=== PATIENT | male | born 1940 | race African-American/Black ===

== ENCOUNTER 2017-03-23 07:44 | Outpatient (CLI) | payer MEDICARE, OTHER | END 2017-03-23 07:45 | disposition home or self-care (01) | LOC: BICMRI 07:44 | PROVIDERS: ATTEND Family Medicine | DX: M54.5 Low back pain (principal); M54.2 Cervicalgia; M48.061 Spinal stenosis, lumbar region without neurogenic claudication; M48.02 Spinal stenosis, cervical region; M25.78 Osteophyte, vertebrae; M48.07 Spinal stenosis, lumbosacral region; M99.73 Connective tissue and disc stenosis of intervertebral foramina of lumbar region; M99.51 Intervertebral disc stenosis of neural canal of cervical region | CPT/HCPCS: 72141; 72148 ==

== ENCOUNTER 2017-05-17 09:35 | Outpatient (CLI) | payer MEDICARE, OTHER ==
--- NOTE | 2017-05-17 11:42 | RAD ---
FOUR VIEWS OF THE LUMBOSACRAL SPINE: HISTORY: Low back pain radiating down the back of the legs for 20 years. COMPARISON: None. FINDINGS: AP, lateral, flexion, and extension views of the lumbosacral spine were performed. There is grade 1 anterolisthesis of L4 on L5. This alignment is unchanged with flexion and extension. The interverte bral disks are narrowed from L2-L3 through L3-L4, and moderate osteophytes are seen throughout the edy mbar spine. Posterior facet arthrosis is seen in the lower lumbosacral spine. IMPRESSION: Moderate degenerative changes of the lumbar spine with anterolisthesis of L4 on L5. Alignment is unc hanged with flexion/extension. POS: [facility]
--- NOTE | 2017-05-17 11:55 | RAD ---
CERVICAL SPINE FIVE VIEWS: INDICATIONS: History of neck pain. Tingling in both hands, but more on the left. FINDINGS: There is multilevel moderate to severe disk degenerative and facet osteoarthritic change. There is s light anterior translation of C3 on C4 that is accentuated with the flexion and is not completely red uced with extension. There is advanced disk degenerative disease, most pronounced at C4-C5 through C 6-C7. Prevertebral soft tissues are within normal limits. The cervicothoracic junction on the AP vi ew only is within normal limits. The lung apices are clear. The lateral masses are symmetric. Mild vascular calcifications are seen involving the aortic arch. IMPRESSION: 1. Moderate to severe spondylosis of the cervical spine. 2. Mild anterior translation of C3 on C4 that is accentuated with flexion and does not completely re duce with extension. POS: [facility]
--- NOTE | 2017-05-17 13:18 | MRI ---
MRI THORACIC SPINE WITHOUT CONTRAST: Technique: Multiplanar, multisequential imaging of the thoracic spine obtained. History: Spinal stenosis of the thoracic spine. FINDINGS: The thoracic vertebrae maintain height and alignment. There are moderate degenerative changes noted. There are anterior osteophytes. There is loss of disc space seen at all levels of the thoracic spine. Degenerative endplate signal changes are prominent at T7-8, T8-9, and T9-10 levels. Diffuse disc bul ge at T1 and T2 impinges on the anterior cord. Evidence of right foraminal encroachment at this level . Broad based disc bulge at T5 and T6 efface the anterior subarachnoid space within significant cord im pingement. Broad based disc bulge is seen at multiple other levels including T6-7, T7-8, T8-9. There is effaceme nt of the anterior subarachnoid space at all of these levels. At T9-10 there is diffuse disc bulge efface the anterior subarachnoid space and abuts the cord. Prominent disc bulge at T10-11 abuts the anterior conus as does diffuse disc bulge at T11-12. The thoracic cord is normal. IMPRESSION: 1. Mild central canal stenosis at T1-2 due to broad based disc bulge impinging and indenting the ante rior cord. 2. Diffuse disc bulge seen at multiple other levels of the thoracic spine as described above. These bulges efface the anterior subarachnoid space at multiple levels and these changes abutt the anterior cord at several levels as noted above producing mild to moderate central canal stenosis at T10-11 an d T11-12. POS: [facility]
--- NOTE | 2017-05-17 14:27 | CT ---
CT CERVICAL SPINE NONCONTRAST: Date: 05/17/17 HISTORY: 76-year-old male with cervical spondylosis, cervical myelopathy, cervicalgia, and bilateral cervical radiculopathy. COMPARISON: None. FINDINGS: There is reversal of curvature, with apex of the kyphosis at C4-5. C1-2: Essentially normal bilateral atlanto-occipital joints. Mild DJD of left atlantoaxial joint. Essential ly normal right atlantoaxial joint. Mild to moderate degenerative changes at atlanto-odontoid junctio n. No significant central spinal canal stenosis. C2-3: Disc space maintained. Small central disc protrusion causes moderate central spinal canal stenosis. M oderate bilateral degenerative facet changes. Bilateral mild to moderate neural foraminal stenosis. C3-4: Moderate disc space narrowing. Severe right degenerative facet changes and moderate to severe left de generative facet changes result in a mild Grade I anterolisthesis of C2 and C4. This spondylolisthesi s, together with broad based shallow disc-osteophyte complex, results in severe central spinal canal stenosis, indenting the ventral surface of the spinal cord. Thickened ligamentum flavum indents the d orsal surface of the spinal cord. Bilateral moderate size uncinate process osteophytes and facet hype rtrophy result in severe bilateral neural foraminal stenosis. C4-5: Severe disc space narrowing. Broad based disc-osteophytic bar complex indents the ventral surface of the spinal cord. Severe central spinal canal stenosis. Large bilateral uncinate process osteophytes. Mild to moderate right neural foraminal stenosis. Moderate to severe left neural foraminal stenosis. Mild to moderate bilateral degenerative facet changes. C5-6: Severe disc space narrowing with vacuum disc phenomenon. Broad based disc-osteophytic bar complex, as ymmetrically larger on the right than left, indents the right side of the spinal cord, causing severe central spinal canal stenosis. Large bilateral uncinate process osteophytes. Extremely severe right neural foraminal stenosis. Moderate left neural foraminal stenosis. Mild to moderate right degenerati ve facet changes. Mild left degenerative facet changes. C6-7: Severe disc space narrowing. Broad based disc-osteophyte bar complex indents the ventral aspect of th e spinal cord. Thickened ligamentum flavum indents the dorsal aspect of the spinal cord. Severe centr al spinal canal stenosis. Moderate to large bilateral uncinate process osteophytes. Mild to moderate right neural foraminal stenosis. Moderate to severe left neural foraminal stenosis. Large air-filled subchondral cysts on the left side of the vertebral bodies of C7 and C6. C7-T1: Moderate to severe bilateral degenerative facet changes result in Grade I anterolisthesis of C7 on T1 . Moderate disc space narrowing. Mild to moderate central spinal canal stenosis. Moderate to severe b ilateral neural foraminal stenosis. IMPRESSION: Severe cervical spondylosis, with multilevel severe degenerative disc disease, severe facet osteoarth rosis, severe central spinal canal stenosis, and severe neural foraminal stenosis. SHANNAN Bourgeois POS: [facility]
== END 2017-05-17 09:36 | disposition home or self-care (01) ==
LOC: MRI 09:35 → TBSIIMAG 09:36
PROVIDERS: ATTEND Surgery
DX: M47.12 Other spondylosis with myelopathy, cervical region (principal); M48.04 Spinal stenosis, thoracic region; M54.16 Radiculopathy, lumbar region; M50.00 Cervical disc disorder with myelopathy, unspecified cervical region; M47.16 Other spondylosis with myelopathy, lumbar region; M43.16 Spondylolisthesis, lumbar region
CPT/HCPCS: 72050; 72110; 72125; 72146

== ENCOUNTER 2017-08-24 14:53 | Outpatient (CLI) | payer MEDICARE, OTHER | END 2017-08-24 14:54 | disposition home or self-care (01) | LOC: BICMRI 14:53 | PROVIDERS: ATTEND Family Medicine | DX: F03.90 Unspecified dementia, unspecified severity, without behavioral disturbance, psychotic disturbance, mood disturbance, and anxiety (principal); I67.82 Cerebral ischemia; G31.9 Degenerative disease of nervous system, unspecified | CPT/HCPCS: 70551 ==

== ENCOUNTER 2018-04-05 13:23 | Outpatient (CLI) | payer MEDICARE, OTHER ==
[2018-04-05] MEDS ORDERED: Gadobenate Dimeglumine 529 MG/1 ML (20ML VIAL) ONE (13:26)
--- NOTE | 2018-04-05 15:58 | MRI ---
MRI BRAIN WITH AND WITHOUT CONTRAST: Date: 04/05/18 HISTORY: 77-year-old male with G31.1 senile degeneration of brain, not elsewhere classified. TECHNIQUE: Multiple sequences obtained in axial, sagittal, and coronal planes, pre and post IV injection of gado linium-based contrast agent: 20 mL MultiHance. FINDINGS: The ventricles are normal in size and configuration. There is no restricted diffusion, abnormal intr aaxial enhancement, mass, midline shift or any other mass effect, recent intraaxial hemorrhage, or ex traaxial fluid collection. There are extensive, confluent T2-hyperintensities throughout the cerebral white matter consistent with severe chronic ischemic white matter changes due to microvascular ather osclerosis. There is diffuse brain parenchymal volume loss. IMPRESSION: 1. Severe chronic ischemic white matter changes. 2. Otherwise negative. jn[] POS: [facility]
== END 2018-04-05 13:24 | disposition home or self-care (01) ==
LOC: BICMRI 13:23
PROVIDERS: ATTEND Psychiatry & Neurology Neurology
DX: G31.1 Senile degeneration of brain, not elsewhere classified (principal)
CPT/HCPCS: 70553; 82565; A9579

== ENCOUNTER 2019-04-24 10:54 | Inpatient (IN) | payer MEDICARE, OTHER ==
[2019-04-24 11:30] LABS: Hemoglobin 12.6 g/dL (14.0-18.0); Mean Corpuscular HGB CONC 31.1 g/dL (32.0-36.0); Mean Corpuscular Hemoglobin 22.9 pg (27.0-31.0); Mean Corpuscular Volume 73.7 fL (78.0-98.0); Mean Platelet Volume 9.3 fL (7.4-10.4); Platelet Count 184 thou/uL (130-400); RBC Distribution Width 14.2 % (11.5-14.5); White Blood Cell (WBC) Count 5.5 thou/uL (4.8-10.8)
[2019-04-24 11:31] LABS: #Basophils 0.1 thou/uL (0.0-0.2); #Lymphocytes 1.3 thou/uL (1.20-3.40); #Monocytes 0.5 thou/uL (0.11-0.59); #Neutrophils 3.7 thou/uL (1.40-6.50); %Basophils 1.8 % (0.0-1.0); %Eosinophils 0.5 % (0.0-10.0); %Lymphocytes 22.7 % (21.0-51.0); %Monocytes 8.4 % (0.0-10.0); %Neutrophils 66.5 % (42.0-75.0)
--- NOTE | 2019-04-24 11:50 | CT ---
CT HEAD WITHOUT IV CONTRAST COMPARISON: MRI brain 04/05/2018 HISTORY: Altered mental status. TECHNIQUE: Axial CT imaging at 5 mm intervals from vertex through skull base without contrast FINDINGS: There is decreased attenuation in the periventricular white matter which is nonspecific but likely re flective of severe chronic small vessel ischemic changes and similar to MRI brain given differences in imaging modality. There is mild cerebral volume loss. The ventricular system is normal in size, shape, and position for the degree of sulcal atrophy. There is no evidence of an acute cortical infarction, hemorrhage, mass effect, or midline shift. Mucosal thickening is present in the left maxillary antrum. Mastoid air cells are clear. Osseous structures appear intact. IMPRESSION: 1. No acute intracranial abnormality demonstrated. 2. Chronic small vessel ischemic changes and cerebral volume loss.
[2019-04-24 11:52] LABS: Hypochromia SLIGHT = 6-15 cells (100X) (0-5/hpf); MDiff Complete? YES; Microcytosis SLIGHT = 6-15 cells (100X) (0-5/hpf); Platelet Morphology Comment Appears Adequate; Polychromasia SLIGHT = 2-3 cells (100X) (0-2/hpf)
[2019-04-24 11:58] LABS: ALT (SGPT) 9 U/L (8-55); AST (SGOT) 17 U/L (5-34); Albumin 3.9 g/dL (3.4-4.8); Alkaline Phosphatase 62 U/L (40-110); Anion Gap 16 mmol/L (10-20); BUN (Urea Nitrogen) 18 mg/dL (8.4-25.7); Bilirubin, Total 0.5 mg/dL (0.2-1.2); Calc. Creatinine Clearance 0 mL/min (70-130); Calcium 9.4 mg/dL (7.8-10.44); Carbon Dioxide 22 mmol/L (23-31); Chloride 104 mmol/L (98-107); Estimated GFR-MDRD 47; Globulin 2.7 g/dL (2.4-3.5); Glucose 177 mg/dL (83-110); Potassium 4.4 mmol/L (3.5-5.1); Protein, Total 6.6 g/dL (5.8-8.1); Sodium 138 mmol/L (136-145)
--- NOTE | 2019-04-24 13:23 | RAD ---
PORTABLE CHEST: Date: 04/24/2019 HISTORY: Mental status change. FINDINGS: Heart is mildly enlarged. Mild vascular engorgement without overt congestive change. No focal infiltr ate. Osseous structures appear intact. IMPRESSION: Cardiomegaly and mild vascular engorgement. No evidence of acute process. POS: [facility]
--- NOTE | 2019-04-24 13:50 | PDOC.FPRHP ---
- History of Present Illness Chief Complaint: Found Down History of Present Illness: Patient is an 78 y/o male with a PMH significant for worsening Dementia, HTN, LBP, HLD and questionable DM2 who presents to the ED via ambulance. The patient was A&Ox1 during the evaluation, so much of the patient' s HPI had to be obtained from his yk-ltszvkuh-to-law, neighbor, and grandson, whom he now lives with. Per the patient's family and friends present during the evaluation, the patient had been having worsening episodes of confusion over the past several months where he would become lost within the [facility] area. On 04/23, he again became confused and drove to [place], [place]. Upon realizing that he was lost, he subsequently phoned his family, who picked him up and brought him home at around 11:00 PM, which was the last time that he was seen normal. At approximately 11:00 AM on 04/24/2019, his grandson returned home from work and found him down on the floor in his bedroom. There was no sign of trauma, acute injury or blood loss, toxic exposure, or loss of bowel or bladder function. However, the patient's grandson states that he was unable to fully arouse him, and that his mental status seemed altered from baseline. He subsequently phoned EMS, which prompted his presentation to [facility]. Per the family and friends present during the evaluation, the patient does not have a history of falls, recent illness or substance abuse. ED Course: While in the ED, the patient was found to be mildy hypoxic and hypotensive, with an O2Sat of 92% (Room Air) and a BP of 83/46. As such, he was subsequently place on 2L via Nasal Cannula and received a 1 L bolus of NS. EKG: RBBB (Baseline Unknown) CPK: 282 (Mildly Elevated) Cr: 1.71 (Elevated - Baseline Unknown) Glucose: 177 H.6 / Hct: 40.5 Trop: 0.015 UA: WNL CT Head: NAF, Chronic Small Vessel Changes and Cerebral Volume Loss CXR: Cardiomegaly with Vascular Engorgement. NAF The resident team [facility] [place] [place] but was unable to obtain records or speak with a healthcare provider. - Home Medications Comments: Patient's grandson left the ED to get an updated Med List. - History PMHx: Dementia, HTN, HLD, LBP, questionable DM2 PSHx: None FHx: No Hx of Seizures, Heart Disease Social: Remote Tobacco Abuse while Patient was "in the [employer]". Currently denies x3 Difficult to obtain based on patient's AMS* - Review of Systems ROS unobtainable: due to mental status - Vital signs BP: [110/54] HR: [56] RR: [18] Tmax: [97.7] Pox: [92]% on [2L Nasal Cannula] Wt: [136 kg] - Physical Exam Constitutional: NAD, well developed, other (A&Ox1, mild tremulouslness noted in upper extremities) HEENT: normocephalic and atraumatic, grossly normal hearing, normal nasal mucosa , MMM, oropharynx clear, other (Patient would not open eyes for physical exam - stated he could see fine and "that's how they always are") Neck: supple, FROM, trachea midline, no LAD, no JVD, no bruits Chest: no-tender to palpation, no lesions Heart: RRR, normal S1/S2, no murmurs/rubs/gallops, pulses present -Heart: Trace pitting edema in LEs. Lungs: CTAB, no respiratory distress, good air movement, no rales/rhonchi, no wheezing, no retractions Abdomen: soft, non-tender, bowel sounds present, no masses/distention, no hernias Musculoskeletal: normal structure, ROM grossly normal Neurological: other ((+) Finger to Nose, (-) Rhomberg) Skin: no rash/lesions, no jaundice Heme/Lymphatic: no unusual bruising or bleeding, no purpura, no petechia, no LAD Psychiatric: other (See HPI - A&Ox1) FMR H&P: Results - Labs Result Diagrams: 04/24/19 11:18 04/24/19 11:18 Lab results: WBC 5.5 thou/uL (4.8-10.8) 04/24/19 11:18 Hgb 12.6 g/dL (14.0-18.0) L 04/24/19 11:18 Hct 40.5 % (42.0-52.0) L 04/24/19 11:18 MCV 73.7 fL (78.0-98.0) L 04/24/19 11:18 Plt Count 184 thou/uL (130-400) 04/24/19 11:18 Neutrophils % 66.5 % (42.0-75.0) 04/24/19 11:18 Sodium 138 mmol/L (136-145) 04/24/19 11:18 Potassium 4.4 mmol/L (3.5-5.1) 04/24/19 11:18 Chloride 104 mmol/L (98-107) 04/24/19 11:18 Carbon Dioxide 22 mmol/L (23-31) L 04/24/19 11:18 BUN 18 mg/dL (8.4-25.7) 04/24/19 11:18 Creatinine 1.71 mg/dL (0.7-1.3) H 04/24/19 11:18 Glucose 177 mg/dL (83-110) H 04/24/19 11:18 Calcium 9.4 mg/dL (7.8-10.44) 04/24/19 11:18 Total Bilirubin 0.5 mg/dL (0.2-1.2) 04/24/19 11:18 AST 17 U/L (5-34) 04/24/19 11:18 ALT 9 U/L (8-55) 04/24/19 11:18 Alkaline Phosphatase 62 U/L (40-110) 04/24/19 11:18 Creatine Kinase 282 U/L (30-200) H 04/24/19 11:18 Serum Total Protein 6.6 g/dL (5.8-8.1) 04/24/19 11:18 Albumin 3.9 g/dL (3.4-4.8) 04/24/19 11:18 - EKG Interpretation EKG: RBBB, EKG reviewed by Residents - Radiology Interpretation Chest x-ray Status: report reviewed by me (Cardiomegal and Vascular Congestion, otherwise WNL.) FMR H&P: A/P - Problem List (1) Altered mental status Current Visit: Yes Status: Acute Code(s): R41.82 - ALTERED MENTAL STATUS, UNSPECIFIED (2) Dementia Current Visit: Yes Status: Acute Code(s): F03.90 - UNSPECIFIED DEMENTIA WITHOUT BEHAVIORAL DISTURBANCE (3) HTN (hypertension) Current Visit: Yes Status: Acute Code(s): I10 - ESSENTIAL (PRIMARY) HYPERTENSION (4) HLD (hyperlipidemia) Current Visit: Yes Status: Acute Code(s): E78.5 - HYPERLIPIDEMIA, UNSPECIFIED (5) Diabetes mellitus Current Visit: Yes Status: Acute Code(s): E11.9 - TYPE 2 DIABETES MELLITUS WITHOUT COMPLICATIONS - Plan Patient is an 78 y/o male who presents to the ED via EMS with an AMS after being found down. 1. AMS -Possibly down for 12H based on family's report w/o of trauma or substance abuse - seizure activity appears unlikely -CVA vs. TIA appear most likely etiology at this time based on presentation and comorbidities -A&O x1 (Person) -Physical Exam: WNL -EKG: RBBB -Trops: Negative x1 -UA: WNL -TSH: Pending -CT Head: NAF -MRI: Pending -CTA Head/Neck: Pending -TTE: Pending -Neuro Consult: Pending 2. LYNDSEY -Current baseline unknown -Cr: 1.71 on 04/24/2019 -s/p 1L NS in ED -Will put on IVF - NS @ 75 ml/hr 3. Dementia -Recently worsening, per patient's family - no known medication regimen -Likely contributing factor to #1 and #2 -Consider sitter, soft restraints, or pharmacologic restraints if patient becomes altered 4. HTN -Hypotensive in ED - currently WNL after 1L NS bolus -Will monitor for 24H and allow for Permissive HTN -Treat with Hydralazine 10 mg PO if BP > 220/120 mmHg 5. HLD -Current medication regimen unknown -Fasting Lipid Panel: Pending 6. DM -Questionable history - will request records from [facility] in [place], [place] -B on 04/24/2019 -Mild SSI -Bedtime SSI -Accuchecks Q4H PCP: [facility] ([place], [place]) Code: DNAR Diet: CC IVF: NS @ 75 ml/hr Activity: Strict Bedrest DVT PPx: Will Hold Dispo: Patient is currently admitted to the Stroke Floor for additional work-up after being found down with AMS. Await results of labs and imaging as per above. Expected LOS < 48H. FMR H&P: Upper Level - Plan Date/Time: 04/24/19 1350 I, [], have evaluated this patient and agree with findings/plan as outlined by internal medicine nurse resident. Pertinent changes/additions are listed here. Addendum - Attending - Attending Attestation Date/Time: 04/24/192234 I personally evaluated the patient and discussed the management with Dr. Howard. I agree with the History, Examination, Assessment and Plan documented above with any addition or exceptions noted below. Most of the history obtained from grandson. Patient has been without his primary warp dyeing vat tender (brother) for a week and so history from the last month is limited. His exam in consistent with dementia. He has a prominent JOHNATHON. Otherwise nonfocal exam. Workup as above.
[2019-04-24] MEDS ORDERED: Iopamidol-370 76% 500 ML 1 ML ONE (14:02)
[2019-04-24 15:02] LABS: Bilirubin Negative (Negative); Blood, Urine Negative (Negative); Clarity Clear (Clear); Glucose, Urine (Dipstick) Normal (Negative); Leukocyte Negative Leu/uL (Negative); Nitrite Negative (Negative); Protein, Urine (Dipstick) 10 mg/dL (Neg-Trace); Urobilinogen Normal mg/dL (Less than 2)
[2019-04-24 17:05] LABS: Troponin I 0.012 ng/mL (< 0.028)
--- NOTE | 2019-04-24 18:28 | PDOC.EVN ---
Event Note - Event Note Event Note: The patient's MPOA (Brother) was contacted on 04/24/2019 at 1825 in order to discuss the patient's Code Status. The patient's MPOA stated that they had never formally discussed his Code Status in the past, but that he knew from [facility] that he didn't want aggressive measures to be pursued if the patient were to decompensate rapidly. In order to ensure mutual understanding, the patient's MPOA was specifically asked if the patient would want chest compressions, intubation, cardioversion, or any type of pharmacologic intervention in the event of a code, to which the patient's MPOA responded refused - indicating that he was electing to change the patient's Code Status to DNAR.
[2019-04-24 19:53] LABS: Troponin I Less than 0.010 ng/mL (< 0.028)
[2019-04-24] MEDS ORDERED: Atorvastatin Calcium 40 MG TAB PO SCH ×2 (21:00→22:15)
[2019-04-24] MEDS ORDERED: Ondansetron ODT 4 MG TAB SL PRN (21:37)
[2019-04-24] MEDS ORDERED: Acetaminophen 325 MG TAB PO PRN ×2 (21:37→22:09)
[2019-04-24] MEDS ORDERED: Ondansetron PF 4 MG/2 ML Vial IVP PRN (21:37)
[2019-04-24] MEDS ORDERED: HYDROcodone/Acetaminophen 5/325 mg Tablet PO PRN ×2 (21:37)
[2019-04-24] MEDS ORDERED: Sodium Chloride 0.9% 1,000 ML IV SCH ×2 (21:37→22:09)
[2019-04-24] MEDS ORDERED: hydrALAZINE 20 MG/ML VIAL SLOW IVP PRN (22:09)
[2019-04-24] MEDS ORDERED: Famotidine 20 MG TAB PO SCH (22:15)
--- NOTE | 2019-04-24 22:26 | CT ---
CT ANGIO OF HEAD PERFORMED WITH AND WITHOUT CONTRAST ENHANCEMENT AND CT ANGIO OF NECK PERFORMED WITH INTRAVENOUS CONTRAST ENHANCEMENT. 3D RECONSTRUCTIONS ALSO PERFORMED. 04/24/19 HISTORY: Altered mental status, stroke symptoms. The lung apices show some evidence for air trapping. Thyroid gland is normal in size. Vocal cord sonny on appears unremarkable. No significant jugular chain adenopathy. Parapharyngeal spaces are clear. Mu cosal change is noted within the left maxillary sinus. 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 The vertebral arteries appear codominant. Artifact related to shoulders degrades the detail. On the right side, the right common carotid artery is tortuous but shows no significant stenosis. Some moderate calcified plaque at the origin of the i nternal carotid artery but no evidence of significant stenosis by NASCET criteria. The external carot id artery is also patent. No significant areas of narrowing noted. The left common carotid artery is also tortuous without significant stenosis. There is some moderate calcified plaque formation at the origin of the left internal carotid artery but no significant steno sis by NASCET criteria. The external carotid artery appears unremarkable. CT ANGIO OF HEAD PERFORMED WITH AND WITHOUT CONTRAST ENHANEMENT: The anterior and middle cerebral arteries and their branches appear unremarkable. The basilar artery is normal in caliber. Posterior cerebral arteries are normal. IMPRESSION: 1. No significant stenosis of either internal carotid artery. 2. Severe chronic white matter changes. No signs of any intracranial abnormalities. POS: [facility]
[2019-04-24] MEDS ORDERED: Calcium Carbonate 500 MG ChewTAB PO PRN (22:58)
[2019-04-25 00:35] VITALS: BMI 41.0
[2019-04-25 04:52] LABS: #Basophils 0.1 thou/uL (0.0-0.2); #Eosinphils 0.1 thou/uL (0.0-0.7); #Lymphocytes 1.5 thou/uL (1.20-3.40); #Monocytes 0.8 thou/uL (0.11-0.59); #Neutrophils 6.1 thou/uL (1.40-6.50); %Basophils 1.2 % (0.0-1.0); %Eosinophils 1.1 % (0.0-10.0); %Lymphocytes 17.4 % (21.0-51.0); %Monocytes 9.5 % (0.0-10.0); %Neutrophils 70.8 % (42.0-75.0); Hemoglobin 12.7 g/dL (14.0-18.0); Mean Corpuscular HGB CONC 29.6 g/dL (32.0-36.0); Mean Corpuscular Hemoglobin 22.1 pg (27.0-31.0); Mean Corpuscular Volume 74.9 fL (78.0-98.0); Mean Platelet Volume 10.1 fL (7.4-10.4); Platelet Count 184 thou/uL (130-400); RBC Distribution Width 14.6 % (11.5-14.5); Red Blood Cell (RBC) Count 5.72 mill/uL (4.70-6.10); White Blood Cell (WBC) Count 8.6 thou/uL (4.8-10.8)
[2019-04-25 05:28] LABS: Anion Gap 14 mmol/L (10-20); BUN (Urea Nitrogen) 22 mg/dL (8.4-25.7); Calc. Creatinine Clearance 68 mL/min (70-130); Calcium 9.3 mg/dL (7.8-10.44); Carbon Dioxide 21 mmol/L (23-31); Cardiac Risk 2.4 (Less than 4.5); Chloride 109 mmol/L (98-107); Cholesterol 131 mg/dl (< 200 Desired); Estimated GFR-MDRD 60; Glucose 115 mg/dL (83-110); HDL Cholesterol 55 mg/dL (>60 Neg Risk); LDL Cholesterol, Calculated 62 mg/dL; Potassium 4.9 mmol/L (3.5-5.1); Sodium 139 mmol/L (136-145); Triglycerides 69 mg/dL (Less than 150)
--- NOTE | 2019-04-25 06:27 | PDOC.FM ---
- Subjective Subjective: Patient was laying in bed at the time of evaluation with multiple friends and family present. He continued to remain A&Ox1, but did not appear to be agitated. His current plan of care was discussed with his dr-bwaulpjj-er-law, who was amenable to the Resident Team's input. - Objective Vital Signs & Weight: Vital Signs (12 hours) Temp Pulse Resp BP Pulse Ox 04/25/19 04:00 98.8 F 90 20 141/65 H 89 L 04/25/19 02:50 90 L 04/25/19 00:00 98.6 F 82 18 140/74 90 L Weight Weight 111.901 kg Result Diagrams: 04/25/19 07:36 04/25/19 07:36 Phys Exam - Physical Examination Constitutional: NAD HEENT: oral pharynx no lesions Neck: supple, full ROM Respiratory: no wheezing, no rhonchi Mild crackles Cardiovascular: RRR, no significant murmur, no rub Gastrointestinal: soft, non-tender, no distention Musculoskeletal: no edema, pulses present Neurological: non-focal, moves all 4 limbs Deviation from normal: A&Ox1 Skin: no rash Dx/Plan (1) Altered mental status Code(s): R41.82 - ALTERED MENTAL STATUS, UNSPECIFIED Status: Acute (2) Dementia Code(s): F03.90 - UNSPECIFIED DEMENTIA WITHOUT BEHAVIORAL DISTURBANCE Status: Acute (3) HTN (hypertension) Code(s): I10 - ESSENTIAL (PRIMARY) HYPERTENSION Status: Acute (4) HLD (hyperlipidemia) Code(s): E78.5 - HYPERLIPIDEMIA, UNSPECIFIED Status: Acute (5) Diabetes mellitus Code(s): E11.9 - TYPE 2 DIABETES MELLITUS WITHOUT COMPLICATIONS Status: Acute - Plan Plan: Patient is an 78 y/o male who presents to the ED via EMS with an AMS after being found down. 1. AMS -Possibly down for 12H based on family's report w/o of trauma or substance abuse - seizure activity appears unlikely -CVA vs. TIA appear most likely etiology at this time based on presentation and comorbidities -A&O x1 (Person) -Physical Exam: WNL - Notified of 1 febrile episode by Resident Night Team -EKG: RBBB -Trops: Negative x1 -UA: WNL -TSH: 1.07 -CT Head: NAF -MRI: Pending -CTA Head/Neck: No Carotid Stenosis, Severe White Matter Changes -TTE: Pending -Neuro Consult: Pending 2. LYNDSEY -Current baseline unknown -Cr: 1.71 > 1.38 -s/p 1L NS in ED -NS @ 75 ml/hr - consider DC this AM 3. Coffee Ground Emesis -Resident Day Team was notified at check-out that patient had 1 episode at approximately 0600 - volume estimated to be a small handful -Protonix initiated, with Type & Cross, stat BCx and and bedside CXR -No episodes of GI dysfunction in the past, per family present -No indication of active bleeding during evaluation -Will continue to evaluate concurrently with #1 3. Dementia -Recently worsening, per patient's family - no known medication regimen -Likely contributing factor to #1 and #2 -Consider sitter, soft restraints, or pharmacologic restraints if patient becomes altered 4. HTN -Hypotensive in ED - currently WNL after 1L NS bolus -Will monitor for 24H and allow for Permissive HTN -Treat with Hydralazine 10 mg PO if BP > 220/120 mmHg 5. HLD -Current medication regimen unknown -ASCVD Risk Stratification: 25% Based on Current Parameters 6. DM -Questionable history - will request records from [facility] in [place], [place] -B on 04/25/2019 -Mild SSI -Accuchecks Q12H PCP: [facility] ([place], [place]) Code: DNAR Diet: NPO IVF: NS @ 75 ml/hr Activity: Strict Bedrest DVT PPx: Will Hold Dispo: Patient is currently admitted to the Stroke Floor for additional work-up after being found down with AMS. CT [place] suggests severe, chronic changes - likely contributing factor. Await results of additional labs and imaging as per above. Will evaluate for possible causes of fever and coffee ground emesis. Expected LOS < 48H. Addendum - Attending - Attending Attestation Date/Time: 04/25/19 1008 I personally evaluated the patient and discussed the management with Dr. Howard. I agree with the History, Examination, Assessment and Plan documented above with any addition or exceptions noted below. The patient admitted with altered mental status. MRI was unsuccessful, pt became combative. He was given ativan but still was not still for the MRI. Echo is pending. He spiked a fever this morning and blood cultures were drawn. There is no leukocytosis. Temp is normal now. If he refevers, will start broad-spectrum antibiotics.
[2019-04-25] MEDS ORDERED: Dextrose 5% in Water 1,000 ML IV PRN (06:30)
[2019-04-25] MEDS ORDERED: Dextrose 50% Abboject 50 ML SYRINGE SLOW IVP PRN (06:30)
[2019-04-25] MEDS ORDERED: Insulin Regular 300 UNITS/3 ML VIAL SC PRN (06:30)
[2019-04-25 07:56] LABS: Lactic Acid 2.1 mmol/L (0.5-2.2)
--- NOTE | 2019-04-25 08:09 | RAD ---
CHEST 1 VIEW: Date: 04/25/2019 INDICATION: History of dyspnea. COMPARISON: Prior exam dated 04/24/2019. FINDINGS: Cardiomegaly and pulmonary vascular congestion persists. There is worsening air space opacity in the left lung. No pneumothorax is evident. IMPRESSION: 1. Worsening air space opacity in the left lung suspicious for worsening asymmetric edema. 2. Persistent cardiomegaly and mild pulmonary vascular engorgement. POS: [facility]
[2019-04-25 08:18] LABS: Anion Gap 13 mmol/L (10-20); BUN (Urea Nitrogen) 21 mg/dL (8.4-25.7); Calc. Creatinine Clearance 70 mL/min (70-130); Carbon Dioxide 23 mmol/L (23-31); Chloride 106 mmol/L (98-107); Estimated GFR-MDRD 63; Potassium 4.1 mmol/L (3.5-5.1); Sodium 138 mmol/L (136-145)
[2019-04-25 08:19] LABS: ALT (SGPT) 9 U/L (8-55); AST (SGOT) 18 U/L (5-34); Albumin 3.8 g/dL (3.4-4.8); Alkaline Phosphatase 61 U/L (40-110); Bilirubin, Total 0.6 mg/dL (0.2-1.2); Calcium 9.6 mg/dL (7.8-10.44); Globulin 2.8 g/dL (2.4-3.5); Glucose 113 mg/dL (83-110); Protein, Total 6.6 g/dL (5.8-8.1)
[2019-04-25] MEDS ORDERED: Aspirin 81 mg Enteric Coated Tablet PO SCH (09:00)
[2019-04-25] MEDS ORDERED: Aspirin 325 mg Enteric Coated Tablet PO SCH (09:00)
[2019-04-25 09:17] LABS: Band 3 % (5-11); Eosinophils 1 % (0-10); Hemoglobin 13.6 g/dL (14.0-18.0); Lymphocytes 19 % (21-51); MDiff Complete? YES; Mean Corpuscular Hemoglobin 23.4 pg (27.0-31.0); Mean Corpuscular Volume 73.2 fL (78.0-98.0); Mean Platelet Volume 9.5 fL (7.4-10.4); Microcytosis SLIGHT = 6-15 cells (100X) (0-5/hpf); Monocytes 4 % (0-10); Neutrophil 72 % (42-75); Platelet Count 181 thou/uL (130-400); Platelet Morphology Comment Appears Adequate; Polychromasia SLIGHT = 2-3 cells (100X) (0-2/hpf); RBC Distribution Width 14.3 % (11.5-14.5); Reactive Lymphocytes 1 % (0-10); Red Blood Cell (RBC) Count 5.82 mill/uL (4.70-6.10); White Blood Cell (WBC) Count 10.4 thou/uL (4.8-10.8)
[2019-04-25] MEDS: metFORMIN 500 MG TAB PO SCH (09:21)
[2019-04-25] MEDS ORDERED: Lorazepam 2 MG/ML VIAL ONE (09:26)
[2019-04-25] MEDS ORDERED: Lorazepam 2 MG/ML VIAL SLOW IVP SCH (09:30)
[2019-04-25] MEDS: Pantoprazole 80 MG in Sodium Chloride 0.9% 100 ML IVP SCH (10:18)
[2019-04-25] MEDS: Tamsulosin HCl 0.4 MG CAP PO SCH (10:24)
[2019-04-25] MEDS: Ferrous Sulfate 325 MG TAB PO SCH ×2 (10:24→16:53)
[2019-04-25] MEDS: Furosemide 40 MG TAB PO SCH (10:24)
[2019-04-25] MEDS ORDERED: Sodium Chloride 0.9% 1,000 ML IV SCH (11:30)
[2019-04-25 14:29] LABS: Amphetamine Not Detected (NotDetected); Barbiturates Screen Not Detected (NotDetected); Benzodiazepine Screen Not Detected (NotDetected); Cocaine Metabolite Screen Not Detected (NotDetected); Medtox Control Line Valid? VALID (VALID); Medtox Reader # READER 1; Methadone Not Detected (NotDetected); Methamphetamine Not Detected (NotDetected); Opiate Screen Not Detected (NotDetected); Oxycodone Screen Not Detected (NotDetected); Phencyclidine (PCP) Not Detected (NotDetected); THC/Cannabinoid Screen Not Detected (NotDetected); Tricyclic Screen Not Detected (NotDetected)
[2019-04-25] MEDS ORDERED: FLU VACC TS2019-20(65YR UP)/PF 180 MCG/0.5 ML SYRINGE IM ONE (21:00)
[2019-04-25] MEDS ORDERED: Prevnar 13-Val Conj/PF 0.5 ML SYRINGE IM ONE (21:00)
[2019-04-25] MEDS: Famotidine 20 MG TAB PO SCH (23:57)
[2019-04-25] MEDS: Atorvastatin Calcium 40 MG TAB PO SCH (23:57)
[2019-04-26] MEDS: Pantoprazole 80 MG in Sodium Chloride 0.9% 100 ML IVP SCH (04:23)
[2019-04-26] MEDS ORDERED: Lorazepam 2 MG/ML VIAL SLOW IVP SCH (05:00)
--- NOTE | 2019-04-26 06:29 | PDOC.FM ---
- Subjective Subjective: Patient was sitting up in bed, finishing his breakfast, at the time of evaluation. He denied any acute overnight events, and his mentation seemed greatly improved from all previous encounters. However, he continued to remain A &Ox1, and he was being monitored by nursing staff closely due to frequent attempts to get out of bed. - Objective Vital Signs & Weight: Vital Signs (12 hours) Temp Pulse Resp BP Pulse Ox 04/26/19 03:11 98.1 F 93 16 135/74 95 04/25/19 23:50 98.1 F 92 16 138/66 94 L 04/25/19 19:35 98.1 F 102 H 16 117/59 L 96 Weight Weight 111.901 kg I&O: 04/24/19 04/25/19 04/26/19 06:59 06:59 06:59 Intake Total 750 Balance 750 Result Diagrams: 04/26/19 06:27 04/26/19 06:27 Phys Exam - Physical Examination Constitutional: NAD Notable distrust of physician during evaluation. HEENT: moist MMs, sclera anicteric, oral pharynx no lesions Neck: supple, full ROM Respiratory: no wheezing, no rales, no rhonchi, clear to auscultation bilateral Cardiovascular: RRR, no significant murmur, no rub Gastrointestinal: soft, non-tender, no distention, positive bowel sounds Musculoskeletal: no edema, pulses present Neurological: non-focal, moves all 4 limbs Deviation from normal: A&Ox1 Skin: no rash Dx/Plan (1) Altered mental status Code(s): R41.82 - ALTERED MENTAL STATUS, UNSPECIFIED Status: Acute (2) Dementia Code(s): F03.90 - UNSPECIFIED DEMENTIA WITHOUT BEHAVIORAL DISTURBANCE Status: Acute (3) HTN (hypertension) Code(s): I10 - ESSENTIAL (PRIMARY) HYPERTENSION Status: Acute (4) HLD (hyperlipidemia) Code(s): E78.5 - HYPERLIPIDEMIA, UNSPECIFIED Status: Acute (5) Diabetes mellitus Code(s): E11.9 - TYPE 2 DIABETES MELLITUS WITHOUT COMPLICATIONS Status: Acute - Plan Plan: Patient is an 78 y/o male who presents to the ED via EMS with an AMS after being found down. 1. AMS -Possibly down for 12H based on family's report w/o of trauma or substance abuse - seizure activity appears unlikely -CVA vs. TIA appear most likely etiology at this time based on presentation and comorbidities -A&O x1 (Person) -Physical Exam: WNL w/ improving mentation - no repeat febrile episodes -EKG: RBBB -Trops: Negative x1 -UA: WNL -TSH: 1.07 -CT Head: NAF -MRI: Not Performed due to Patient Agitation - Will Re-Attempt Today -CTA Head/Neck: No Carotid Stenosis, Severe White Matter Changes -TTE: Technically Limited Study - EF(>60%), Aortic Valve Leaflet Thickening -Neuro Consult: Pending 2. LYNDSEY -Current baseline unknown -Cr: 1.71 > 1.38 -s/p 1L NS in ED -NS @ 75 ml/hr - DC'd 3. Coffee Ground Emesis -Resident Day Team was notified at check-out that patient had 1 episode at approximately 0600 on 04/25 - volume estimated to be a small handful -Protonix initiated, with Type & Cross, stat BCx and and bedside CXR -No episodes of GI dysfunction in the past, per family present -No indication of active bleeding during evaluation -Will continue to evaluate concurrently with #1 -No new episodes reported - currently on Protonix 3. Dementia -Recently worsening, per patient's family - no known medication regimen -Likely contributing factor to #1 and #2 -Consider sitter, soft restraints, or pharmacologic restraints if patient becomes altered 4. HTN -Hypotensive in ED - currently WNL after 1L NS bolus -Will monitor for 24H and allow for Permissive HTN -Treat with Hydralazine 10 mg PO if BP > 220/120 mmHg 5. HLD -Current medication regimen unknown -ASCVD Risk Stratification: 25% Based on Current Parameters 6. DM -Questionable history - will request records from [facility] in [place], [place] -B on 04/25/2019 -Mild SSI -Accuchecks Q12H PCP: [facility] ([place], [place]) Code: Full Code - Recently Changed on 04/25/2019 after Discussion w/ Patient, per Night Team Diet: NPO IVF: None Activity: Strict Bedrest DVT PPx: Will Hold Dispo: Patient is currently admitted to the Stroke Floor for additional work-up after being found down with AMS. CT [place] [facility] [place] suggests severe, chronic changes - likely contributing factor - TTE unremarkable. Await results of additional labs and imaging as per above. Will continue to evaluate for possible causes of fever and coffee ground emesis, but no documented fevers in past 24H. Expected LOS < 48H. Addendum - Attending - Attending Attestation Date/Time: 04/26/192134 I personally evaluated the patient and discussed the management with Dr. Howard. I agree with the History, Examination, Assessment and Plan documented above with any addition or exceptions noted below. Pt with no new fever. Echo showed thickened aortic valve, cannot rule out vegetations. Will discuss with cardiology. Will try again for MRI today. Neurology is being consulted. Pt is still confused but slightly improved.
[2019-04-26 07:04] LABS: #Eosinphils 0.2 thou/uL (0.0-0.7); #Lymphocytes 1.9 thou/uL (1.20-3.40); #Monocytes 0.7 thou/uL (0.11-0.59); #Neutrophils 8.7 thou/uL (1.40-6.50); %Basophils 0.4 % (0.0-1.0); %Lymphocytes 16.3 % (21.0-51.0); %Monocytes 5.8 % (0.0-10.0); %Neutrophils 75.6 % (42.0-75.0); Hemoglobin 12.3 g/dL (14.0-18.0); Mean Corpuscular HGB CONC 31.8 g/dL (32.0-36.0); Mean Corpuscular Hemoglobin 23.2 pg (27.0-31.0); Mean Corpuscular Volume 73.2 fL (78.0-98.0); Mean Platelet Volume 9.7 fL (7.4-10.4); Platelet Count 180 thou/uL (130-400); Red Blood Cell (RBC) Count 5.29 mill/uL (4.70-6.10); White Blood Cell (WBC) Count 11.5 thou/uL (4.8-10.8)
[2019-04-26 07:13] LABS: ALT (SGPT) 9 U/L (8-55); AST (SGOT) 16 U/L (5-34); Albumin 3.4 g/dL (3.4-4.8); Alkaline Phosphatase 52 U/L (40-110); Anion Gap 9 mmol/L (10-20); BUN (Urea Nitrogen) 15 mg/dL (8.4-25.7); Bilirubin, Total 0.7 mg/dL (0.2-1.2); Calc. Creatinine Clearance 88 mL/min (70-130); Calcium 9.2 mg/dL (7.8-10.44); Carbon Dioxide 28 mmol/L (23-31); Chloride 105 mmol/L (98-107); Estimated GFR-MDRD 81; Globulin 2.6 g/dL (2.4-3.5); Glucose 110 mg/dL (83-110); Potassium 4.1 mmol/L (3.5-5.1); Sodium 138 mmol/L (136-145)
[2019-04-26] MEDS: Tamsulosin HCl 0.4 MG CAP PO SCH (08:59)
[2019-04-26] MEDS: metFORMIN 500 MG TAB PO SCH (08:59)
[2019-04-26] MEDS: Aspirin 81 mg Enteric Coated Tablet PO SCH (08:59)
[2019-04-26] MEDS: Furosemide 40 MG TAB PO SCH (08:59)
[2019-04-26] MEDS: Ferrous Sulfate 325 MG TAB PO SCH ×2 (09:00→17:18)
--- NOTE | 2019-04-26 15:42 | MRI ---
MRI BRAIN NONCONTRAST: DATE: 04/26/2019 HISTORY: 78-year-old male with stroke. COMPARISON: 04/05/2018 FINDINGS: Patient was brought down for attempted scanning 4 times, on medication. Patient was unable to remain motionless, and 3 of the scan attempts were completely unsuccessful. All of the images are severely degraded by patient motion, except for the DWI and ADC map (which are not significantly degraded by patient motion because they are echoplanar sequences). There is no obstructive hydrocephalus. There is no midline shift or any other evidence of mass effect . There is no extra-axial fluid collection. There are extensive, confluent T2-hyperintensities throughout the cerebral white matter consistent with severe chronic ischemic white matter changes due to microvascular atherosclerosis. At the anterior aspect of the right thalamus, there is a new approximately 0.9 x 0.4 cm focus of restricted diffusion, new since the prior MRI. IMPRESSION: 1) acute small lacunar infarction of right thalamus. 2) Involutional changes and severe chronic ischemic white matter changes. 3) very limited study otherwise because of severe patient motion artifact.
--- NOTE | 2019-04-26 17:31 | CON ---
DATE OF CONSULTATION: 04/26/2019 CONSULTING PHYSICIAN: Hospitalist Service. IMPRESSION: 1. Right thalamic stroke resulting in some secondary cognitive changes, which appear to be improving. 2. Agitation secondary to his underlying dementia. 3. Hypertension. 4. Diabetes. PLAN: 1. Continue aspirin and a statin. 2. The patient can be discharged home with family, this evening, if you care to do so, the other option would be [facility] transfer, which may be challenging. HISTORY OF PRESENT ILLNESS: Mr. Light is an 78-year-old gentleman with a past history of hypertension, diabetes, and dementia. He came in with some altered mental status. His CT showed extensive small vessel ischemic changes. His lab work was all unremarkable. His chest x-ray showed some suggestion of a pneumonia. His echocardiogram showed a normal ejection fraction of 55% to 60%. He had transient fever of 100.9, at one point, he has been afebrile since then. His vital signs otherwise have been stable, took several attempts. We obtained an MRI. The MRI revealed an acute lacunar infarction in the right thalamus. The patient is now much more alert and a bit agitated. He is trying to pull his IV out. He was somewhat cooperative in responding to his grandson. PAST MEDICAL HISTORY: As listed above. ALLERGIES: NONE. SOCIAL HISTORY: No tobacco or alcohol. FAMILY HISTORY: Noncontributory. REVIEW OF SYSTEMS: Not obtainable secondary to his dementia. PHYSICAL EXAMINATION: VITAL SIGNS: Blood pressure 141/71, pulse 84, respirations 14, and temperature 98.3. HEENT: Pupils are equal. Conjunctivae are clear. Oropharynx clear. NECK: Supple. EXTREMITIES: No cyanosis. NEUROLOGIC: He was alert and somewhat cooperative. His speech was fluent and clear. We get him to follow some commands. There was no facial asymmetry. It could not elicit any asymmetry and strength. There is no obvious dysmetria, though testing was limited. Sensation was grossly intact. He could sit at the bedside without any difficulty. SUMMARY: An elderly gentleman with an additional area of ischemia, superimposed on fairly extensive white matter disease resulting in secondary dementia. He is currently on best available treatment. I do not see any need for change. Job ID: [id number]
[2019-04-26] MEDS ORDERED: Haloperidol Lactate 5 MG/ML VIAL IM SCH ×2 (20:15→20:30)
--- NOTE | 2019-04-26 20:41 | CON ---
DATE OF CONSULTATION: 04/26/2019 REASON FOR CONSULTATION: Evaluate for possible transesophageal echo. HISTORY OF PRESENT ILLNESS: Mr. Light is a pleasant 78-year-old gentleman, who comes to the hospital for altered mentation. He was admitted with altered mental status and CT showed small vessel ischemic changes. He eventually had a fever of 100.9, but has not had any fever since and his blood cultures have been negative so far. He underwent echocardiogram to evaluate for CVA and he was found to have a normal EF at 60% to 65% with thickened aortic valve leaflets and read said that cannot exclude vegetations on the aortic valve. On my evaluation, Mr. Light is altered, is not letting me examine him. He has about five people around him and he is very confused, saying that we are not letting him talk to his physical therapy supervisor. PAST MEDICAL HISTORY: 1. Hypertension. 2. Diabetes. 3. Dementia. 4. Hyperlipidemia. PAST SURGICAL HISTORY: None. FAMILY HISTORY: Noncontributory. SOCIAL HISTORY: No alcohol, tobacco, or drugs. Remote tobacco use in the [employer]. It is many, many years back. REVIEW OF SYSTEMS: Unobtainable as the patient is agitated. OUTPATIENT MEDICATIONS: 1. Metformin. 2. Tamsulosin. 3. Meloxicam. 4. Losartan. 5. Furosemide. 6. Ferrous sulfate. 7. Diltiazem. 8. Vitamin B12. 9. Vitamin D3. 10. Betamethasone ointment. 11. Atorvastatin. 12. Aspirin 81 a day. ALLERGIES: NO KNOWN DRUG ALLERGIES. PHYSICAL EXAMINATION: VITAL SIGNS: Temperature 98.3, pulse 84, respiratory rate 14, sat 97% on room air, and blood pressure 141/71. GENERAL: Awake, alert, but confused, oriented to person only. He is very agitated. HEENT: Did not let me examine. LUNGS: Did not let me examine. CARDIOVASCULAR: Did not let me examine. ABDOMEN: Did not let me examine. EXTREMITIES: Did not let me examine. SKIN: Did not let me examine. LABORATORY DATA: Laboratory work was reviewed. CBC is reviewed. White count is a little bit higher today at 11.5, but has been normal. Hemoglobin of 12, hematocrit of 38, platelet count of 180. Chemistry was unremarkable. UA was negative. Toxicology was negative. CT of the brain was reviewed. MRI of the brain was also reviewed and it showed acute small lacunar infarction of the right thalamus with involutional changes and severe chronic ischemic white matter changes. ASSESSMENT: 1. New lacunar infarct. 2. Altered mental status. 3. Calcified aortic valve. PLAN: 1. At this time, he is not a good candidate for transesophageal echo. He is confused and cannot be consented. I would not put him to sleep in this altered state. It will only make things worse. 2. His clinical picture is not that of endocarditis. 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 I do not see any vegetations. Currently, I cannot rule this out completely on a transthoracic echo. However, his cultures are negative and he has been afebrile on no antibiotics. I do not think that he would be a candidate for transesophageal echo at this time. I would think that the risk of the procedure outweighs the benefits at this point. If he were to become febrile, had positive blood culture septic or anything that would indicate history of an infection somewhere or possibility of endocarditis, I would absolutely proceed. However, at this time, I would hold off unless there is a significant clinical change. 3. I would treat as mild aortic stenosis. Thank you for letting us to participate in the care of your patient. We will follow. Job ID: [id number]
[2019-04-26] MEDS: Atorvastatin Calcium 40 MG TAB PO SCH (21:00)
[2019-04-26] MEDS: Famotidine 20 MG TAB PO SCH (21:00)
[2019-04-26] MEDS ORDERED: Sterile Water 10 ML VIAL FS PRN (21:37)
--- NOTE | 2019-04-27 06:34 | PDOC.FM ---
- Subjective Subjective: Patient was sleeping prior to the evaluation, but was easy to arouse. He denied any acute overnight events, specifically with regard to pain. - Objective Vital Signs & Weight: Vital Signs (12 hours) Temp Pulse Resp BP Pulse Ox 04/27/19 00:23 98 F 77 14 161/94 H 94 L Weight Weight 111.901 kg I&O: 04/25/19 04/26/19 04/27/19 06:59 06:59 06:59 Intake Total 750 Output Total 300 Balance 750 -300 Result Diagrams: 04/26/19 06:27 04/27/19 07:03 Phys Exam - Physical Examination Constitutional: NAD HEENT: moist MMs, oral pharynx no lesions Neck: supple, full ROM Respiratory: no wheezing, no rales, no rhonchi, clear to auscultation bilateral Cardiovascular: RRR, no significant murmur, no rub Gastrointestinal: soft, non-tender, no distention, positive bowel sounds Musculoskeletal: no edema, pulses present Neurological: non-focal, moves all 4 limbs Lymphatic: no nodes Deviation from normal: A&Ox1 Skin: no rash Dx/Plan (1) Altered mental status Code(s): R41.82 - ALTERED MENTAL STATUS, UNSPECIFIED Status: Acute (2) Dementia Code(s): F03.90 - UNSPECIFIED DEMENTIA WITHOUT BEHAVIORAL DISTURBANCE Status: Acute (3) HTN (hypertension) Code(s): I10 - ESSENTIAL (PRIMARY) HYPERTENSION Status: Acute (4) HLD (hyperlipidemia) Code(s): E78.5 - HYPERLIPIDEMIA, UNSPECIFIED Status: Acute (5) Diabetes mellitus Code(s): E11.9 - TYPE 2 DIABETES MELLITUS WITHOUT COMPLICATIONS Status: Acute - Plan Plan: Patient is an 78 y/o male who presents to the ED via EMS with an AMS after being found down. 1. AMS -Possibly down for 12H based on family's report w/o of trauma or substance abuse - seizure activity appears unlikely -CVA confirmed on MRI -A&O x1 (Person) -Physical Exam: WNL w/ improving mentation - no repeat febrile episodes -EKG: RBBB -Trops: Negative x1 -UA: WNL -TSH: 1.07 -CT Head: NAF -MRI: Limited due to Patient Motion - Right Thalamic Infarct -CTA Head/Neck: No Carotid Stenosis, Severe White Matter Changes -TTE: Technically Limited Study - EF(>60%), Aortic Valve Leaflet Thickening - Cannot r/o Vegetations -Neuro Consult: No changes indicated from current plan -Cardiology Consult: Questionable possibility of Endocarditis - appears unlikely at this point. Need for ARIANNA is outweighed by potential risks of further sedation of an already altered patient. 2. LYNDSEY -Current baseline unknown -Cr: 1.71 > 1.38 -s/p 1L NS in ED -NS @ 75 ml/hr - DC'd 3. Coffee Ground Emesis -Resident Day Team was notified at check-out that patient had 1 episode at approximately 0600 on 04/25 - volume estimated to be a small handful -Protonix initiated, with Type & Cross, stat BCx and and bedside CXR -No episodes of GI dysfunction in the past, per family present -No indication of active bleeding during evaluation -Will continue to evaluate concurrently with #1 -No new episodes reported - currently on Protonix 3. Dementia -Recently worsening, per patient's family - no known medication regimen -Likely contributing factor to #1 and #2 -Consider sitter, soft restraints, or pharmacologic restraints if patient becomes altered 4. HTN -Hypotensive in ED - currently WNL after 1L NS bolus -Will monitor for 24H and allow for Permissive HTN -Treat with Hydralazine 10 mg PO if BP > 220/120 mmHg 5. HLD -Current medication regimen unknown -ASCVD Risk Stratification: 25% Based on Current Parameters 6. DM -Questionable history - will request records from [place] in [place], [place] -B on 04/27 -Mild SSI -Accuchecks Q12H PCP: [facility] ([place], [place]) Code: Full Code - Recently Changed on 04/25/2019 after Discussion w/ Patient, per Night Team Diet: CC IVF: None Activity: Strict Bedrest DVT PPx: Will Hold Dispo: Patient is currently admitted to the Stroke Floor for CVA - confirmed on MRI. Dementia is likely contributing factor to continued agitation. Will continue to evaluate for possible causes of fever and coffee ground emesis, but no documented fevers in past 24H. Will confirm MPOA status and initiated DC planning with likely NH placement. Expected LOS < 48H. Addendum - Attending - Attending Attestation Date/Time: 04/27/19 3114 I personally evaluated the patient and discussed the management with Dr. Howard. I agree with the History, Examination, Assessment and Plan documented above with any addition or exceptions noted below. The patient is more alert this morning. MRI showed an acute infarct. He has been cleared by neurology. Working with palliative and case management on discharge planning once we clarify the MPOA.
[2019-04-27 07:23] LABS: Anion Gap 10 mmol/L (10-20); BUN (Urea Nitrogen) 16 mg/dL (8.4-25.7); Calc. Creatinine Clearance 97 mL/min (70-130); Carbon Dioxide 26 mmol/L (23-31); Chloride 107 mmol/L (98-107); Estimated GFR-MDRD Greater than 90; Glucose 92 mg/dL (83-110); Potassium 3.6 mmol/L (3.5-5.1); Sodium 139 mmol/L (136-145)
[2019-04-27] MEDS: Furosemide 40 MG TAB PO SCH ×3 (08:52→21:25)
[2019-04-27] MEDS ORDERED: Non-Formulary Item 1 EACH (Losartan Potassium [Losartan Potassium] 100 MG) PO SCH (09:00)
[2019-04-27] MEDS: Losartan 25 MG TAB PO SCH (10:01)
[2019-04-27] MEDS: Ferrous Sulfate 325 MG TAB PO SCH ×2 (10:02→16:26)
[2019-04-27] MEDS: metFORMIN 500 MG TAB PO SCH (10:02)
[2019-04-27] MEDS: Aspirin 81 mg Enteric Coated Tablet PO SCH (10:02)
[2019-04-27] MEDS: Tamsulosin HCl 0.4 MG CAP PO SCH (10:02)
[2019-04-27] MEDS ORDERED: Labetalol HCl 100 MG/20 ML VIAL SLOW IVP PRN (18:35)
--- NOTE | 2019-04-27 19:14 | PDOC.CPN ---
- Subjective Date: 04/27/19 Time: 19:12 Interval history: He remains confused. Afebrile. - Review of Systems ROS unobtainable: due to mental status - Objective Allergies/Adverse Reactions: Allergies Allergy/AdvReac Type Severity Reaction Status Date / Time No Known Allergies Allergy Verified 04/25/19 09:28 Visit Medications: Current Medications Acetaminophen (Tylenol) 650 mg PO Q4H PRN PRN Reason: Headache/Fever/Mild Pain (1-3) Aspirin (Ecotrin) 81 mg PO DAILY [facility] Last Admin: 04/27/19 10:02 Dose: 81 mg Atorvastatin Calcium (Lipitor) 40 mg PO HS [facility] Last Admin: 04/26/19 21:00 Dose: Not Given Calcium Carbonate (Tums) 1,000 mg PO Q4H PRN PRN Reason: Heartburn or Indigestion Last Admin: 04/25/19 00:06 Dose: 1,000 mg Dextrose/Water (Dextrose 50%) 25 gm SLOW IVP PRN PRN PRN Reason: Hypoglycemia Diltiazem HCl (Cardizem Cd) 480 mg PO [facility] Famotidine (Pepcid) 20 mg PO QPM [facility] Last Admin: 04/26/19 21:00 Dose: Not Given Ferrous Sulfate (Feosol) 325 mg PO BID-[facility] Last Admin: 04/27/19 16:26 Dose: 325 mg Furosemide (Lasix) 40 mg PO BID [facility] Last Admin: 04/27/19 10:02 Dose: 40 mg Glucagon (Glucagon) 1 mg IM PRN PRN PRN Reason: Hypoglycemia Hydralazine HCl (Apresoline) 10 mg SLOW IVP Q4H PRN PRN Reason: BP > 160/100 Dextrose/Water (D5w) 1,000 mls @ 0 mls/hr IV .Q0M PRN PRN Reason: Hypoglycemia Pantoprazole Sodium 80 mg/ (Sodium Chloride) 100 mls @ 10 mls/hr IVP INF [facility] Last Admin: 04/26/19 04:23 Dose: 100 mls Insulin Human Regular (Humulin R) 0 units SC .MILD SLIDING SCALE PRN PRN Reason: Mild Correctional Scale Labetalol HCl (Normodyne) 10 mg SLOW IVP Q4H PRN PRN Reason: SBP Greater Than 180 Lorazepam (Ativan) 1 mg SLOW IVP .30 MIN PRIOR TO MRI [facility] Last Admin: 04/26/19 14:12 Dose: 1 mg Losartan Potassium (Cozaar) 100 mg PO DAILY [facility] Last Admin: 04/27/19 10:01 Dose: 100 mg Metformin HCl (Glucophage) 1,000 mg PO QAM-WM [facility] Last Admin: 04/27/19 10:02 Dose: 1,000 mg Sodium Chloride (Flush - Normal Saline) 10 ml IVF Q12HR [facility] Last Admin: 04/27/19 10:02 Dose: Not Given Sodium Chloride (Flush - Normal Saline) 10 ml IVF PRN PRN PRN Reason: Saline Flush Sterile Water (Water For Injection) 1.2 ml FS PRN PRN PRN Reason: RECONSTITUTION Tamsulosin HCl (Flomax) 0.4 mg PO DAILY [facility] Last Admin: 04/27/19 10:02 Dose: 0.4 mg Ziprasidone (Geodon) 10 mg IM Q2H PRN PRN Reason: Agitation Vital Signs & Weight: Vital Signs Temp Pulse Pulse Resp BP BP Pulse Ox 04/27/19 15:40 98.1 F 92 18 199/106 H 98 04/27/19 12:00 98.1 F 94 18 181/113 H 97 04/27/19 09:03 84 153/82 H 04/27/19 07:56 98.0 F 79 16 180/108 H 97 Weight 246 lb 11.2 oz - Physical Exam General: appears well HEENT: mucus membranes moist Neck: supple neck Cardiac: regular rate and rhythm, no murmur Lungs: normal breath sounds Neuro: grossly intact Abdomen: active bowel sounds Extremities: no edema Skin: clear Musculoskeletal: no pain - Labs Result Diagrams: 04/26/19 06:27 04/27/19 07:03 Troponin/CKMB Troponin I Less than 0.010 ng/mL (< 0.028) 04/24/19 19:08 - Telemetry Supraventricular conduction: atrial fibrillation - Assessment/Plan Assessment/Plan: 1. Calcified aortic valve 2. AMS 3. Dementia 4. Lacunar infarct, acute. PLAN: - Low clinical suspicion for endocarditis. - Will hold off on ARIANNA for now. - Will sign off. Please call with any questions.
[2019-04-27] MEDS ORDERED: DILTIAZEM HCL PO SCH (21:00)
[2019-04-27] MEDS: Atorvastatin Calcium 40 MG TAB PO SCH (21:25)
[2019-04-27] MEDS: Famotidine 20 MG TAB PO SCH (21:25)
[2019-04-28 04:54] LABS: #Basophils 0.1 thou/uL (0.0-0.2); #Eosinphils 0.3 thou/uL (0.0-0.7); #Lymphocytes 1.7 thou/uL (1.20-3.40); #Monocytes 0.7 thou/uL (0.11-0.59); #Neutrophils 3.3 thou/uL (1.40-6.50); %Eosinophils 4.2 % (0.0-10.0); %Lymphocytes 28.4 % (21.0-51.0); %Neutrophils 55.3 % (42.0-75.0); Hemoglobin 12.9 g/dL (14.0-18.0); Mean Corpuscular HGB CONC 30.6 g/dL (32.0-36.0); Mean Corpuscular Hemoglobin 22.5 pg (27.0-31.0); Mean Corpuscular Volume 73.4 fL (78.0-98.0); Mean Platelet Volume 9.3 fL (7.4-10.4); Platelet Count 192 thou/uL (130-400); RBC Distribution Width 14.2 % (11.5-14.5); Red Blood Cell (RBC) Count 5.74 mill/uL (4.70-6.10)
[2019-04-28 05:16] LABS: ALT (SGPT) 10 U/L (8-55); AST (SGOT) 17 U/L (5-34); Albumin 3.8 g/dL (3.4-4.8); Alkaline Phosphatase 53 U/L (40-110); Anion Gap 13 mmol/L (10-20); BUN (Urea Nitrogen) 16 mg/dL (8.4-25.7); Bilirubin, Total 0.6 mg/dL (0.2-1.2); Calc. Creatinine Clearance 90 mL/min (70-130); Calcium 9.2 mg/dL (7.8-10.44); Carbon Dioxide 25 mmol/L (23-31); Chloride 103 mmol/L (98-107); Estimated GFR-MDRD 83; Globulin 2.9 g/dL (2.4-3.5); Glucose 99 mg/dL (83-110); Potassium 3.4 mmol/L (3.5-5.1); Protein, Total 6.7 g/dL (5.8-8.1); Sodium 138 mmol/L (136-145)
--- NOTE | 2019-04-28 05:33 | PDOC.FM ---
- Subjective Subjective: Patient was sitting comfortably in his chair with his grandson present at the time of evaluation. They denied any acute overnight events, and confirmed that the patient's MPOA (brother - Cain) would be arriving today from [place], [place] in order to transfer status of MPOA. - Objective Vital Signs & Weight: Vital Signs (12 hours) Temp Pulse Resp BP BP Pulse Ox 04/28/19 04:00 98.6 F 87 20 114/63 93 L 04/28/19 00:00 98.0 F 86 20 142/95 H 100 04/27/19 21:24 92 149/95 H 04/27/19 20:00 97.9 F 86 20 148/95 H 92 L Weight Weight 111.901 kg I&O: 04/26/19 04/27/19 04/28/19 06:59 06:59 06:59 Intake Total 750 0 640 Output Total 300 Balance 750 -300 640 Result Diagrams: 04/28/19 04:31 04/28/19 04:31 Phys Exam - Physical Examination Constitutional: NAD HEENT: moist MMs, sclera anicteric, oral pharynx no lesions Neck: supple, full ROM Respiratory: no wheezing, no rales, no rhonchi, clear to auscultation bilateral Cardiovascular: RRR, no significant murmur, no rub Gastrointestinal: soft, non-tender, no distention Musculoskeletal: no edema, pulses present Neurological: moves all 4 limbs Deviation from normal: A&Ox2 - Improved from previous evaluation Skin: no rash Dx/Plan (1) Altered mental status Code(s): R41.82 - ALTERED MENTAL STATUS, UNSPECIFIED Status: Acute (2) Dementia Code(s): F03.90 - UNSPECIFIED DEMENTIA WITHOUT BEHAVIORAL DISTURBANCE Status: Acute (3) HTN (hypertension) Code(s): I10 - ESSENTIAL (PRIMARY) HYPERTENSION Status: Acute (4) HLD (hyperlipidemia) Code(s): E78.5 - HYPERLIPIDEMIA, UNSPECIFIED Status: Acute (5) Diabetes mellitus Code(s): E11.9 - TYPE 2 DIABETES MELLITUS WITHOUT COMPLICATIONS Status: Acute - Plan Plan: Patient is an 78 y/o male who presents to the ED via EMS with an AMS after being found down. 1. AMS -Possibly down for 12H based on family's report w/o of trauma or substance abuse - seizure activity appears unlikely -CVA confirmed on MRI -A&O x1 (Person) -Physical Exam: WNL w/ improving mentation - no repeat febrile episodes -EKG: RBBB -Trops: Negative x1 -UA: WNL -TSH: 1.07 -CT Head: NAF -MRI: Limited due to Patient Motion - Right Thalamic Infarct -CTA Head/Neck: No Carotid Stenosis, Severe White Matter Changes -TTE: Technically Limited Study - EF(>60%), Aortic Valve Leaflet Thickening - Cannot r/o Vegetations -Neuro Consult: No changes indicated from current plan -Cardiology Consult: TTE was could not r/o vegetations / Endocarditis - appears unlikely at this point after further evaluation. Need for ARIANNA is outweighed by potential risks of further sedation of an already altered patient. 2. LYNDSEY, resolved -Current baseline unknown -Cr: 1.71 > 1.04 -s/p 1L NS in ED -NS @ 75 ml/hr - DC'd 3. Coffee Ground Emesis -Resident Day Team was notified at check-out that patient had 1 episode at approximately 0600 on 04/25 - volume estimated to be a small handful -Protonix initiated, with Type & Cross, stat BCx and and bedside CXR -No episodes of GI dysfunction in the past, per family present -No indication of active bleeding during evaluation -Will continue to evaluate concurrently with #1 -No new episodes reported - currently on Protonix 3. Dementia -Recently worsening, per patient's family - no known medication regimen -Likely contributing factor to #1 and #2 -Consider sitter, soft restraints, or pharmacologic restraints if patient becomes altered 4. HTN -Hypotensive in ED - currently WNL after 1L NS bolus -Will monitor for 24H and allow for Permissive HTN -Restarted home medication regimen -Treat with Hydralazine 10 mg PO if BP > 220/120 mmHg 5. HLD -Current medication regimen unknown -ASCVD Risk Stratification: 25% Based on Current Parameters 6. DM -Questionable history - will request records from [place] in [place] -B on 04/28 -Mild SSI -Accuchecks Q12H PCP: JOHN ([place], [place]) Code: Full Code - Recently Changed on 04/25/2019 after Discussion w/ Patient, per Night Team Diet: CC IVF: None Activity: Strict Bedrest DVT PPx: Will Hold Dispo: Patient is currently admitted to the Stroke Floor for CVA - confirmed on MRI. Dementia is likely contributing factor to continued agitation. Will continue to evaluate for possible causes of fever and coffee ground emesis, but no documented fevers or repeat emesis in past 48H. Awaiting family to finalize MPOA paperwork to begin SNF placement discussion with Case Management. Expected LOS < 48H. Addendum - Attending - Attending Attestation Date/Time: 04/28/19 2293 I personally evaluated the patient and discussed the management with Dr. Howard. I agree with the History, Examination, Assessment and Plan documented above with any addition or exceptions noted below. The patient's brother who is the current mpoa is supposed to be here later to transfer mpoa to a grandson. Case mgmt is working on correction placement.
[2019-04-28] MEDS ORDERED: Potassium Chloride 20 MEQ TAB PO SCH (05:45)
[2019-04-28] MEDS: metFORMIN 500 MG TAB PO SCH (09:31)
[2019-04-28] MEDS: Ferrous Sulfate 325 MG TAB PO SCH ×2 (09:31→17:30)
[2019-04-28] MEDS: Furosemide 40 MG TAB PO SCH ×2 (09:32→21:17)
[2019-04-28] MEDS: Enoxaparin Sodium 40 MG/0.4 ML SYRINGE SC SCH (09:32)
[2019-04-28] MEDS: Tamsulosin HCl 0.4 MG CAP PO SCH (09:32)
[2019-04-28] MEDS: Losartan 25 MG TAB PO SCH (09:32)
[2019-04-28] MEDS: Aspirin 81 mg Enteric Coated Tablet PO SCH (09:32)
[2019-04-28] MEDS: Ziprasidone 20 MG VIAL IM PRN ×2 (13:38→19:58)
--- NOTE | 2019-04-28 15:03 | PDOC.BPN ---
- Brief Progress Note The Resident Medicine Team was notified at approximately 1400 that the patient had become agitated and required Ziprasidone 10 mg IM. Upon arrival, the patient was asleep in bed and did not appear to be in any acute distress or a danger to himself or staff. His niece was present at the time of evaluation and did not express any concerns. Physical exam revealed the patient to be sleeping peacefully, with clear breath sounds and a RRR w/o any discernible murmur. ABD was soft and did not demonstrate any TTP. Distal pulses were intact bilaterally. The current plan of care was discussed with the patient's niece, and she stated that the patient's brother would be present at ~1700 in order to transfer MPOA to the patient's grandson.
[2019-04-28] MEDS: Famotidine 20 MG TAB PO SCH (21:18)
[2019-04-28] MEDS: Atorvastatin Calcium 40 MG TAB PO SCH (21:18)
--- NOTE | 2019-04-29 05:50 | PDOC.FM ---
- Subjective Subjective: Patient was resting comfortable in his chair at the time of evaluation with a sitter present. He denied any acute overnight events. - Objective Vital Signs & Weight: Vital Signs (12 hours) Temp Pulse Resp BP BP Pulse Ox 04/29/19 03:59 98 F 75 24 H 149/81 H 93 L 04/28/19 23:50 98.4 F 86 24 H 106/66 95 04/28/19 21:17 124 H 149/82 H 04/28/19 20:56 97 04/28/19 20:34 124 H 20 149/82 H 97 Weight Weight 111.901 kg I&O: 04/27/19 04/28/19 04/29/19 06:59 06:59 06:59 Intake Total 0 640 900 Output Total 300 Balance -300 640 900 Result Diagrams: 04/29/19 04:56 04/29/19 04:56 Phys Exam - Physical Examination Constitutional: NAD HEENT: moist MMs, sclera anicteric, oral pharynx no lesions Neck: supple, full ROM Respiratory: no wheezing, no rales, no rhonchi, clear to auscultation bilateral Cardiovascular: RRR, no significant murmur, no rub Gastrointestinal: soft, non-tender, no distention, positive bowel sounds Musculoskeletal: no edema, pulses present Neurological: non-focal, moves all 4 limbs Deviation from normal: A&Ox2 Skin: no rash Dx/Plan (1) Dementia Code(s): F03.90 - UNSPECIFIED DEMENTIA WITHOUT BEHAVIORAL DISTURBANCE Status: Chronic (2) HTN (hypertension) Code(s): I10 - ESSENTIAL (PRIMARY) HYPERTENSION Status: Chronic (3) HLD (hyperlipidemia) Code(s): E78.5 - HYPERLIPIDEMIA, UNSPECIFIED Status: Chronic (4) Diabetes mellitus Code(s): E11.9 - TYPE 2 DIABETES MELLITUS WITHOUT COMPLICATIONS Status: Chronic (5) CVA (cerebral vascular accident) Code(s): I63.9 - CEREBRAL INFARCTION, UNSPECIFIED Status: Acute (6) Encephalopathy acute Code(s): G93.40 - ENCEPHALOPATHY, UNSPECIFIED Status: Acute (7) LYNDSEY (acute kidney injury) Code(s): N17.9 - ACUTE KIDNEY FAILURE, UNSPECIFIED Status: Resolved - Plan Plan: Patient is an 78 y/o male who presents to the ED via EMS with an AMS after being found down. 1. Acute Encephalopathy 2/2 CVA -Possibly down for 12H based on family's report w/o of trauma or substance abuse - CVA confirmed on MRI -A&O x1 on admission - Improved to A&Ox2 -Physical Exam: WNL w/ improving mentation - no repeat febrile episodes -EKG: RBBB -Trops: Negative x1 -UA: WNL -TSH: 1.07 -CT Head: NAF -MRI: Limited due to Patient Motion - Right Thalamic Infarct -CTA Head/Neck: No Carotid Stenosis, Severe White Matter Changes -TTE: Technically Limited Study - EF(>60%), Aortic Valve Leaflet Thickening - Cannot r/o Vegetations -Neuro Consult: No changes from current plan indicated -Cardiology Consult: TTE was of poor quality and could not r/o vegetations / Endocarditis - appears unlikely at this point after further evaluation. Need for ARIANNA is outweighed by potential risks of further sedation of an already altered patient. 2. LYNDSEY, resolved -Current baseline unknown -Cr: 1.71 > 1.04 -s/p 1L NS in ED -NS @ 75 ml/hr - DC'd 3. Coffee Ground Emesis -Resident Day Team was notified at check-out that patient had 1 episode at approximately 0600 on 04/25 - volume estimated to be a small handful -Protonix initiated, with Type & Cross, stat BCx and and bedside CXR -No episodes of GI dysfunction in the past, per family present -No indication of active bleeding during evaluation -Will continue to evaluate concurrently with #1 -No new episodes reported - Protonix DC'd 3. Dementia -Recently worsening, per patient's family - no known medication regimen -Likely contributing factor to #1 and #2 -Hospital stay has been complicated by multiple episodes of agitation - responsive to Ziprasidone -Consider sitter, soft restraints, or pharmacologic restraints if patient becomes altered 4. HTN -BP: 149/81 on 04/29 -Will monitor for 24H and allow for Permissive HTN -Restarted home medication regimen -Treat with Hydralazine 10 mg PO if BP > 220/120 mmHg 5. HLD -Current medication regimen unknown -ASCVD Risk Stratification: 25% Based on Current Parameters -Atorvastatin 40 mg PO daily 6. DM -Questionable history [facility] [place] [place] -Glucose control has been adequate during hospitalization -Metformin 1000 mg PO daily -Mild SSI -Accuchecks Q12H PCP: JOHN ([place], [place]) Code: Full Code - Recently Changed on 04/25/2019 after Discussion w/ Patient, per Night Team Diet: CC IVF: None Activity: Ad aleks DVT PPx: Lovenox 40 mg Dispo: Patient is currently stable on the Stroke Floor for CVA - confirmed on MRI despite poor quality. Dementia is likely contributing factor to continued agitation. No repeat episodes of fever or emesis in past 48H. Awaiting family to finalize MPOA paperwork to begin SNF placement discussion with Case Management - may require more extensive involvement. Expected LOS < 48H. Addendum - Attending - Attending Attestation Date/Time: 04/29/19 1926 I personally evaluated the patient and discussed the management with Dr. Howard. I agree with the History, Examination, Assessment and Plan documented above with any addition or exceptions noted below. The patient now has a sitter. Still waiting on [facility] to sign papers so that placement can occur.
[2019-04-29 05:52] LABS: ALT (SGPT) 10 U/L (8-55); AST (SGOT) 17 U/L (5-34); Albumin 3.7 g/dL (3.4-4.8); Alkaline Phosphatase 48 U/L (40-110); Anion Gap 14 mmol/L (10-20); BUN (Urea Nitrogen) 17 mg/dL (8.4-25.7); Bilirubin, Total 0.7 mg/dL (0.2-1.2); Calc. Creatinine Clearance 83 mL/min (70-130); Calcium 9.1 mg/dL (7.8-10.44); Carbon Dioxide 26 mmol/L (23-31); Chloride 104 mmol/L (98-107); Estimated GFR-MDRD 76; Globulin 2.9 g/dL (2.4-3.5); Glucose 112 mg/dL (83-110); Potassium 3.2 mmol/L (3.5-5.1); Protein, Total 6.6 g/dL (5.8-8.1); Sodium 141 mmol/L (136-145)
[2019-04-29] MEDS ORDERED: Potassium Chloride 20 MEQ TAB PO SCH (06:00)
[2019-04-29 06:03] LABS: Eosinophils 4 % (0-10); Hemoglobin 11.6 g/dL (14.0-18.0); Lymphocytes 21 % (21-51); MDiff Complete? YES; Mean Corpuscular HGB CONC 31.2 g/dL (32.0-36.0); Mean Corpuscular Hemoglobin 22.6 pg (27.0-31.0); Mean Corpuscular Volume 72.3 fL (78.0-98.0); Mean Platelet Volume 9.4 fL (7.4-10.4); Monocytes 14 % (0-10); Neutrophil 61 % (42-75); Platelet Count 207 thou/uL (130-400); Red Blood Cell (RBC) Count 5.16 mill/uL (4.70-6.10); White Blood Cell (WBC) Count 5.5 thou/uL (4.8-10.8)
[2019-04-29] MEDS: Enoxaparin Sodium 40 MG/0.4 ML SYRINGE SC SCH (09:17)
[2019-04-29] MEDS: Famotidine 20 MG TAB PO SCH ×2 (09:17→22:01)
[2019-04-29] MEDS: Aspirin 81 mg Enteric Coated Tablet PO SCH (09:17)
[2019-04-29] MEDS: Ferrous Sulfate 325 MG TAB PO SCH ×2 (09:17→16:58)
[2019-04-29] MEDS: metFORMIN 500 MG TAB PO SCH (09:17)
[2019-04-29] MEDS: Furosemide 40 MG TAB PO SCH ×2 (09:18→22:02)
[2019-04-29] MEDS: Tamsulosin HCl 0.4 MG CAP PO SCH (09:18)
[2019-04-29] MEDS: Losartan 25 MG TAB PO SCH (09:18)
[2019-04-29] MEDS: Atorvastatin Calcium 40 MG TAB PO SCH (22:02)
[2019-04-30 05:07] LABS: #Basophils 0.1 thou/uL (0.0-0.2); #Eosinphils 0.2 thou/uL (0.0-0.7); #Monocytes 0.9 thou/uL (0.11-0.59); #Neutrophils 3.2 thou/uL (1.40-6.50); %Basophils 1.3 % (0.0-1.0); %Eosinophils 3.2 % (0.0-10.0); %Lymphocytes 31.5 % (21.0-51.0); %Monocytes 13.7 % (0.0-10.0); %Neutrophils 50.4 % (42.0-75.0); Hemoglobin 11.5 g/dL (14.0-18.0); Mean Corpuscular HGB CONC 30.2 g/dL (32.0-36.0); Mean Corpuscular Hemoglobin 21.6 pg (27.0-31.0); Mean Corpuscular Volume 71.6 fL (78.0-98.0); Mean Platelet Volume 9.3 fL (7.4-10.4); Platelet Count 214 thou/uL (130-400); RBC Distribution Width 13.9 % (11.5-14.5); Red Blood Cell (RBC) Count 5.32 mill/uL (4.70-6.10); White Blood Cell (WBC) Count 6.3 thou/uL (4.8-10.8)
[2019-04-30 05:27] LABS: ALT (SGPT) 9 U/L (8-55); AST (SGOT) 15 U/L (5-34); Albumin 3.8 g/dL (3.4-4.8); Alkaline Phosphatase 51 U/L (40-110); Anion Gap 12 mmol/L (10-20); BUN (Urea Nitrogen) 24 mg/dL (8.4-25.7); Bilirubin, Total 0.5 mg/dL (0.2-1.2); Calc. Creatinine Clearance 67 mL/min (70-130); Calcium 9.1 mg/dL (7.8-10.44); Carbon Dioxide 27 mmol/L (23-31); Chloride 103 mmol/L (98-107); Estimated GFR-MDRD 60; Globulin 2.8 g/dL (2.4-3.5); Glucose 103 mg/dL (83-110); Potassium 3.4 mmol/L (3.5-5.1); Protein, Total 6.6 g/dL (5.8-8.1); Sodium 139 mmol/L (136-145)
--- NOTE | 2019-04-30 05:51 | PDOC.FM ---
- Subjective Subjective: Patient was sitting up in his chair with his brother and qm-qbnatlir-ky-law at bedside during the evaluation. He denied any acute overnight events, to include chest pain, shortness of breath or feelings of fever. - Objective Vital Signs & Weight: Vital Signs (12 hours) Temp Pulse Resp BP BP Pulse Ox 04/30/19 04:42 97.4 F L 72 16 122/61 100 04/29/19 22:01 91 119/58 L 04/29/19 20:07 95 04/29/19 20:00 98.1 F 78 16 135/80 92 L Weight Weight 111.901 kg I&O: 04/28/19 04/29/19 04/30/19 06:59 06:59 06:59 Intake Total 640 1020 900 Balance 640 1020 900 Result Diagrams: 04/30/19 04:49 04/30/19 10:12 Phys Exam - Physical Examination Constitutional: NAD HEENT: PERRLA, moist MMs, sclera anicteric, oral pharynx no lesions Neck: supple, full ROM Respiratory: no wheezing, no rales, no rhonchi, clear to auscultation bilateral Cardiovascular: RRR, no significant murmur, no rub Gastrointestinal: soft, non-tender, no distention, positive bowel sounds Musculoskeletal: no edema, pulses present Neurological: non-focal, moves all 4 limbs Deviation from normal: A&Ox1 (Person) Skin: no rash Dx/Plan (1) Dementia Code(s): F03.90 - UNSPECIFIED DEMENTIA WITHOUT BEHAVIORAL DISTURBANCE Status: Chronic (2) HTN (hypertension) Code(s): I10 - ESSENTIAL (PRIMARY) HYPERTENSION Status: Chronic (3) HLD (hyperlipidemia) Code(s): E78.5 - HYPERLIPIDEMIA, UNSPECIFIED Status: Chronic (4) Diabetes mellitus Code(s): E11.9 - TYPE 2 DIABETES MELLITUS WITHOUT COMPLICATIONS Status: Chronic (5) CVA (cerebral vascular accident) Code(s): I63.9 - CEREBRAL INFARCTION, UNSPECIFIED Status: Acute (6) Encephalopathy acute Code(s): G93.40 - ENCEPHALOPATHY, UNSPECIFIED Status: Acute (7) LYNDSEY (acute kidney injury) Code(s): N17.9 - ACUTE KIDNEY FAILURE, UNSPECIFIED Status: Resolved - Plan Plan: Patient is an 78 y/o male who presents to the ED via EMS with an AMS after being found down. 1. Acute Encephalopathy 2/2 CVA -Possibly down for 12H based on family's report w/o of trauma or substance abuse - CVA confirmed on MRI -A&O x1 on admission - Improved to A&Ox2 -Physical Exam: WNL w/ improving mentation - no repeat febrile episodes -EKG: RBBB -Trops: Negative x1 -UA: WNL -TSH: 1.07 -CT Head: NAF -MRI: Limited due to Patient Motion - Right Thalamic Infarct -CTA Head/Neck: No Carotid Stenosis, Severe White Matter Changes -TTE: Technically Limited Study - EF(>60%), Aortic Valve Leaflet Thickening - Cannot r/o Vegetations -Neuro Consult: No changes from current plan indicated -Cardiology Consult: TTE was of poor quality and could not r/o vegetations / Endocarditis - appears unlikely at this point after further evaluation. Need for ARIANNA is outweighed by potential risks of further sedation of an already altered patient. 2. LYNDSEY -Current baseline unknown -Cr: 1.71 > 1.4 - fluctuating since admission -s/p 1L NS in ED -NS @ 75 ml/hr - DC'd -Patient would benefit from an additional BMP and outpatient work-up 3. Coffee Ground Emesis -Resident Day Team was notified at check-out that patient had 1 episode at approximately 0600 on 04/25 - volume estimated to be a small handful -Protonix initiated, with Type & Cross, stat BCx and and bedside CXR -No episodes of GI dysfunction in the past, per family present -No indication of active bleeding during evaluation -Will continue to evaluate concurrently with #1 -No new episodes reported - Protonix DC'd 3. Dementia -Recently worsening, per patient's family - no known medication regimen -Likely contributing factor to #1 and #2 -Hospital stay has been complicated by multiple episodes of agitation - responsive to Ziprasidone -Consider sitter, soft restraints, or pharmacologic restraints if patient becomes altered 4. HTN -Restarted home medication regimen -Treat with Hydralazine 10 mg PO if BP > 220/120 mmHg 5. HLD -Current medication regimen unknown -ASCVD Risk Stratification: 25% Based on Current Parameters -Atorvastatin 40 mg PO daily 6. DM -Questionable history - will request records from [place] -Glucose control has been adequate during hospitalization -Metformin 1000 mg PO daily -Mild SSI -Accuchecks Q12H -Glucose measurements have been acceptable since admission PCP: JOHN ([place], [place]) Code: Full Code - Recently Changed on 04/25/2019 after Discussion w/ Patient, per Night Team Diet: CC IVF: None Activity: Ad aleks - Requires Sitter DVT PPx: Lovenox 40 mg Dispo: Patient is currently stable on the Stroke Floor for CVA - confirmed on MRI despite poor quality. Dementia is likely contributing factor to continued agitation. No repeat episodes of fever or emesis in past 72H. Per patient's family, the patient is expected to return home with a 24H sitter - will reengage this AM and begin DC planning. Expected LOS < 48H. Addendum - Attending - Attending Attestation Date/Time: 04/30/19 4541 I personally evaluated the patient and discussed the management with Dr. Howard. I agree with the History, Examination, Assessment and Plan documented above with any addition or exceptions noted below. Patient has setup and desires to go home. MPOA changed to grandson. Patient is in good spirits. Plan for dc. Needs short term BMP follow up as no clear if BL.
[2019-04-30] MEDS: metFORMIN 500 MG TAB PO SCH (10:21)
[2019-04-30] MEDS: Enoxaparin Sodium 40 MG/0.4 ML SYRINGE SC SCH (10:21)
[2019-04-30] MEDS: Famotidine 20 MG TAB PO SCH (10:21)
[2019-04-30] MEDS: Aspirin 81 mg Enteric Coated Tablet PO SCH (10:21)
[2019-04-30] MEDS: Furosemide 40 MG TAB PO SCH (10:22)
[2019-04-30] MEDS: Ferrous Sulfate 325 MG TAB PO SCH (10:22)
[2019-04-30] MEDS: Tamsulosin HCl 0.4 MG CAP PO SCH (10:22)
[2019-04-30] MEDS: Losartan 25 MG TAB PO SCH (10:22)
[2019-04-30 10:36] LABS: Anion Gap 17 mmol/L (10-20); BUN (Urea Nitrogen) 25 mg/dL (8.4-25.7); Calc. Creatinine Clearance 61 mL/min (70-130); Calcium 10.6 mg/dL (7.8-10.44); Carbon Dioxide 23 mmol/L (23-31); Chloride 103 mmol/L (98-107); Estimated GFR-MDRD 54; Glucose 125 mg/dL (83-110); Potassium 3.6 mmol/L (3.5-5.1); Sodium 139 mmol/L (136-145)
[2019-04-30 11:48] VITALS: BP 131/68; TEMP 97.9
--- NOTE | 2019-04-30 21:32 | DIS ---
DATE OF ADMISSION: 04/25/2019 DATE OF DISCHARGE: 04/30/2019 RESIDENT: Bala Howard MD ADMITTING ATTENDING: Marcin Perez MD DISCHARGE ATTENDING: Marcin Perez MD CONSULTS: 1. Lio Machuca MD, Neurology. 2. Amarjit Ball MD, Cardiology. PROCEDURES: Head CT without IV contrast showing no acute intracranial abnormalities. However, there was chronic small vessel ischemic change in cerebral volume loss. Portable chest x-ray showing cardiomegaly and mild vascular engorgement with no evidence of acute processes. CT angio of the head with and without contrast, impression was no significant stenosis of either internal carotid artery. However, there were severe chronic white matter changes without intracranial abnormalities noted. Chest x-ray demonstrating worsening airspace opacity in left lung suspicious for worsening asymmetric edema, persistent cardiomegaly and mild pulmonary vascular engorgement. MRI brain noncontrast demonstrating a very limited study based on patient compliance; however, despite severe patient motion artifact, there was a small acute lacunar infarct located at the right thalamus. It was accompanied by involutional changes and severe chronic ischemic white matter changes. PRIMARY DIAGNOSIS: Acute Encephalopathy secondary to Cerebrovascular Accident. SECONDARY DIAGNOSES: 1. Dementia. 2. Hypertension. 3. Hyperlipidemia. 4. Diabetes mellitus. 5. Acute kidney injury. DISCHARGE MEDICATIONS: None. DISCONTINUED MEDICATIONS: 1. Aspirin 81 mg p.o. daily. 2. Atorvastatin 40 mg p.o. daily. 3. Calcium carbonate 1000 mg p.o. q.4 hours p.r.n. 4. Diltiazem 480 mg p.o. daily. 5. Lovenox 40 mg subcutaneous daily. 6. Famotidine 20 mg p.o. b.i.d. 7. Ferrous sulfate 325 mg p.o. b.i.d. 8. Furosemide 40 mg p.o. b.i.d. 9. Lorazepam 1 mg slow IV push. 10. Losartan potassium 100 mg p.o. daily. 11. Metformin 1000 mg p.o. daily. 12. Pantoprazole 80 mg at 10 mL/h. 13. Tamsulosin 0.4 mg p.o. daily. 14. Ziprasidone 10 mg IM q.2 hours p.r.n. HISTORY OF PRESENT ILLNESS AND HOSPITAL COURSE: The patient is an 78-year-old male with past medical history significant for worsening dementia, hypertension, chronic back pain, hyperlipidemia, and questionable diabetes type 2, who presents to the emergency department via ambulance. The patient was A and O x1 during the evaluation, so much of the patient's HPI had to be obtained from the patient's dx-hdqynjke-uz-law, neighbor and grandson, whom he now lives with. Per the patient's family and friends present during the evaluation, the patient had been having worsening episodes of confusion over the past several months, where he became lost within the [facility] [place]. On 04/23/2019, he became again confused and drove to [place], [place]. Upon realizing that he was lost, he subsequently phoned his family, who picked him up and brought him home at around 11:00 p.m., which was the last time that he was seen normal. At approximately 11:00 a.m. on 2019, his grandson returned home from work and found him down on the floor in the bedroom. There was no signs of trauma, acute injury or blood loss, toxic exposure, loss of bowel or bladder function. However, the patient's grandson states that he was unable to fully arouse the patient and that his mental status seemed altered from baseline. He subsequently phoned EMS, which prompted his presentation to [facility]. Per the patient's family and friends present during the evaluation, the patient did not have a history of falls, recent illness, or substance abuse. While in emergency department the patient was found to be mildly hypoxic and hypotensive with an oxygen saturation of 92% and a blood pressure of 83/46. As such, he was subsequently placed on 2 L oxygen provided via nasal cannula and received 1 L bolus of normal saline. Imaging reports were conducted that are mentioned elsewhere in this document. The patient was found to have a right thalamic stroke and was subsequently evaluated by the Neurology team. Per the neurology's recommendations, the patient was receiving optimal medications and was cleared for discharge. However, the patient's hospital stay was complicated by multiple episodes of severe agitation requiring sedation as well as one episode of coffee-grounds emesis and fever. The latter two of which could not be found to have an identifiable cause. The patient was started on a Protonix drip and additional blood cultures and imaging modalities were performed, all of which were negative. The patient subsequently did not develop a fever for the duration of his stay and his symptoms remained relatively well controlled. As such, he was subsequently prepped for discharge once his family was able to organize for a 24-hour sitter to be present at his home in order to monitor the patient's status. Prior to discharge, the patient's vital signs were recorded as temperature 97.9, pulse 74 , blood pressure 131/68, oxygen saturation 98% on room air. LABORATORY ANALYSIS: Revealed a white blood cell count of 6.3, hemoglobin of 11.5, hematocrit 38.1, platelets 214. Chem panel revealed a sodium of 139, potassium 3.6, chloride 103, carbon dioxide 23, BUN 25, creatinine 1.52, glucose 125, calcium 10.6, AST 15, ALT 9, alkaline phosphatase 51, ammonia 18, creatine kinase 282. Troponins negative x3. Basic natriuretic peptide 132. Urinalysis was unremarkable and toxicology did not identify any known toxins in the patient's bloodstream. DISPOSITION: Stable. DISCHARGE INSTRUCTIONS: 1. Location: Home with 24-hour sitter service as discussed with the patient's grandson. 2. Diet: Heart healthy and carbohydrate conscious. 3. Activity: No restrictions. 4. Followup: The patient was encouraged to follow up with his primary care provider in 1 to 2 weeks to discuss the most recent hospitalization and ongoing medical management. Additionally, the patient was encouraged to discuss ongoing memory dysfunction and in light of the patient's apparently worsening dementia. Lastly, the patient was encouraged to ensure adequate hydration and follow up for evaluation of his acute kidney injury, which may likely be a chronic issue that requires additional medical attention Job ID: [id number] [facility]
--- NOTE | 2019-05-01 21:08 | PQF ---
[facility] [employer]ulatory Affairs Specialist Crystal Reports Winform Viewer GAL ARCEO I FELIX HILL [id number] [facility] [id number] CLINICAL DOCUMENTATION CLARIFICATION FORM: POST DISCHARGE Addendum to original discharge summary date: ____ Late entry note date: __ DATE: 05/01/19 ATTN:Felix Hill Please exercise your independent, professional judgment in responding to the clarification form. Clinical indicators are provided on the bottom of this form for your review Can you please further clarify the specificity of Encephalopathy? Please check appropriate box(s): [ x ] Encephalopathy: Etiology: [ ] Hypertensive [ ] Metabolic [ ] Toxic [ ] Other diagnosis please specify [ ] Unable to determine In addition, please specify: Present on Admission (POA): [ x ] Yes [ ] No [ ] Unable to determine For continuity of documentation, please document condition throughout progress notes and discharge summary. Thank You. CLINICAL INDICATORS - SIGNS / SYMPTOMS / LABS H and P pg.1- "Altered mental status" DS pg.1- in ED the patient found to be mild hypoxic and hypotensive with an O2 saturation of 92% Acute encephalopathy 2/2 acute hypoxic respiratory failure ED Provider- Change in mental status Consult pg.1- his chest X ray showed some suggestion of a pneumonia DS pg.1Acute encephalopathy 2/2 CVA RISK FACTORS Acute CVA- H and P pg.1 LYNDSEY-DS pg.1 hypertension- DS pg.1 Hyperlipidemia- DS pg.1 dementia- DS pg.1 Hypotension- H and P pg.1 TREATMENTS: Chest X ray 04/25 MRI Brain- 04/26 CT Brain 04/24 IV fluids- MAR Cardiology Consult Dr. Ball 04/[address] Machuca (This form is maintained as a part of the permanent medical record) 2014 [employer]. All Rights Reserved [email or web address] [email or web address]
--- NOTE | 2019-05-01 21:12 | PQF ---
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 Clinical indicators are provided on the bottom of this form for your review Can you please further clarify if Acute hypoxic respiratory failure ins ruled in or ruled out? Acute hypoxic respiratory failure [ ] Ruled in diagnosis [ ] Continue to treat [ ] Resolved [ x] Ruled out diagnosis [ ] Cannot rule out diagnosis [ ] Other diagnosis [ ] Unable to determine In addition, please specify: Present on Admission (POA): [ ] Yes [ x] No [ ] Unable to determine For continuity of documentation, please document condition throughout progress notes and discharge summary. Thank You. CLINICAL INDICATORS - SIGNS / SYMPTOMS / LABS DS pg.1- in ED the patient found to be mild hypoxic and hypotensive with an O2 saturation of 92% H and P pg.1- "Acute encephalopathy 2/2 acute hypoxic respiratory failure" ED Provider- Change in mental status Consult pg.1- his chest X ray showed some suggestion of a pneumonia DS pg.1Acute encephalopathy 2/2 CVA RISK FACTORS Acute CVA- H and P pg.1 LYNDSEY-DS pg.1 hypertension- DS pg.1 Hyperlipidemia- DS pg.1 dementia- DS pg.1 Hypotension- H and P pg.1 TREATMENTS Chest X ray 04/25 MRI Brain- 04/26 CT Brain 04/24 IV fluids- MAR Cardiology Consult Dr. Ball 04/26 O2 supplementation (This form is maintained as a part of the permanent medical record) 2014 [employer]. All Rights Reserved [email or web address]
== END 2019-04-30 14:15 | disposition home health service (06) | DRG 65 ==
LOC: ERS 10:54 → ERHOLD 15:56 → 2SE 22:07 → OBSVTOIN 04-25 11:27 → 2SE 04-26 19:49
PROVIDERS: ADMIT Family Medicine; ATTEND Family Medicine
PROC: B020ZZZ Computerized Tomography (CT Scan) of Brain (ICD-10-PCS; 2019-04-24)
PROC: B030ZZZ Magnetic Resonance Imaging (MRI) of Brain (ICD-10-PCS; principal; 2019-04-26)
DX: I63.81 Other cerebral infarction due to occlusion or stenosis of small artery (principal); N17.9 Acute kidney failure, unspecified; I13.0 Hypertensive heart and chronic kidney disease with heart failure and stage 1 through stage 4 chronic kidney disease, or unspecified chronic kidney disease; I50.22 Chronic systolic (congestive) heart failure; G93.49 Other encephalopathy; Z66 Do not resuscitate; E78.5 Hyperlipidemia, unspecified; G89.29 Other chronic pain; F03.90 Unspecified dementia, unspecified severity, without behavioral disturbance, psychotic disturbance, mood disturbance, and anxiety; M54.5 Low back pain; N18.9 Chronic kidney disease, unspecified; E11.22 Type 2 diabetes mellitus with diabetic chronic kidney disease; I95.9 Hypotension, unspecified; R29.704 NIHSS score 4; R40.2412 Glasgow coma scale score 13-15, at arrival to emergency department; E78.00 Pure hypercholesterolemia, unspecified; I70.0 Atherosclerosis of aorta; Z87.891 Personal history of nicotine dependence; Z79.82 Long term (current) use of aspirin; Z79.899 Other long term (current) drug therapy; Z79.84 Long term (current) use of oral hypoglycemic drugs
CPT/HCPCS: 36415; 36416; 51701; 70450; 70496; 70498; 70551; 71045; 80048; 80053; 80061; 80306; 81003; 82140; 82550; 83605; 83880; 84443; 84484; 85025; 86850; 86900; 86901; 87040; 93005; 93306; 96360; C9113; J1630; J1650; J2060; J3486; J3490; Q9967

== ENCOUNTER 2021-01-17 17:56 | Inpatient (IN) | payer MEDICARE, OTHER ==
[2021-01-17 19:06] LABS: Bacteria/HPF 4+ HPF (None Seen); Bilirubin Negative (Negative); Blood, Urine Trace (Negative); Glucose, Urine (Dipstick) Normal (Negative); Ketone, Urine Negative (Negative); Leukocyte 500 Leu/uL (Negative); Nitrite Negative (Negative); Protein, Urine (Dipstick) 10 mg/dL (Neg-Trace); RBC/HPF 0-3 HPF (0-3); Specific Gravity, Urine 1.016 (1.002-1.036); Squamous Epithelial 0-3 HPF (0-3); Urobilinogen Normal mg/dL (Less than 2); WBC/HPF Greater than 50 HPF (0-3)
[2021-01-17 19:07] LABS: Clarity Cloudy (Clear)
[2021-01-17] MEDS ORDERED: cefTRIAXone\\ROCEPHIN 2 GM VIAL ONE (19:35)
[2021-01-17 20:22] LABS: Anion Gap 17 mmol/L (10-20); BUN (Urea Nitrogen) 122 mg/dL (8.4-25.7); Calc. Creatinine Clearance 0 mL/min (70-130); Carbon Dioxide 26 mmol/L (23-31); Chloride 104 mmol/L (98-107); Glucose 114 mg/dL (83-110); Potassium 3.7 mmol/L (3.5-5.1); Sodium 143 mmol/L (136-145)
[2021-01-17 20:23] LABS: ALT (SGPT) 19 U/L (8-55); AST (SGOT) 17 U/L (5-34); Albumin 2.5 g/dL (3.4-4.8); Alkaline Phosphatase 82 U/L (40-110); Bilirubin, Total 0.5 mg/dL (0.2-1.2); Calcium 8.1 mg/dL (7.8-10.44); Globulin 3.3 g/dL (2.4-3.5); Protein, Total 5.8 g/dL (5.8-8.1)
[2021-01-17 20:47] LABS: Anisocytosis SLIGHT = 6-15 cells (100X) (0-5/hpf); Band 26 % (5-11); Elliptocytes SLIGHT = 2-5 cells (100X) (0-1/hpf); Eosinophils 4 % (0-10); Hemoglobin 9.3 g/dL (14.0-18.0); Lymphocytes 9 % (21-51); MDiff Complete? YES; Mean Corpuscular HGB CONC 32.7 g/dL (32.0-36.0); Mean Corpuscular Hemoglobin 23.4 pg (27.0-31.0); Mean Corpuscular Volume 71.5 fL (78.0-98.0); Mean Platelet Volume 9.5 fL (7.4-10.4); Monocytes 5 % (0-10); Neutrophil 56 % (42-75); Platelet Count 318 thou/uL (130-400); Platelet Morphology Comment Appears Adequate; Poikilocytosis SLIGHT = 6-15 cells (100X) (0-5/hpf); RBC Distribution Width 13.8 % (11.5-14.5); Red Blood Cell (RBC) Count 3.99 mill/uL (4.70-6.10); Schistocytes SLIGHT = 2-5 cells (100X) (0-1/hpf); White Blood Cell (WBC) Count 13.7 thou/uL (4.8-10.8)
[2021-01-17] MEDS ORDERED: HumaLOG 300 UNITS/3 ML VIAL SC PRN ×2 (22:42)
[2021-01-17] MEDS ORDERED: Dextrose 5% in Water 1,000 ML IV PRN (22:42)
[2021-01-17] MEDS ORDERED: Dextrose 50% Abboject 50 ML SYRINGE SLOW IVP PRN (22:42)
[2021-01-17] MEDS: Lactated Ringer's 1,000 ML IV SCH (23:53)
[2021-01-17 23:54] LABS: Hemoglobin A1c 5.7 % (4.0-6.0)
[2021-01-17] MEDS ORDERED: Lactated Ringer's 1,000 ML IV SCH (23:59)
[2021-01-18 00:29] VITALS: BMI 29.5
[2021-01-18 07:25] LABS: Anion Gap 9 mmol/L (10-20); BUN (Urea Nitrogen) 92 mg/dL (8.4-25.7); Calc. Creatinine Clearance 52 mL/min (70-130); Calcium 8.2 mg/dL (7.8-10.44); Carbon Dioxide 26 mmol/L (23-31); Chloride 108 mmol/L (98-107); Glucose 102 mg/dL (83-110); Iron 35 ug/dL (65-175); Iron Binding Capacity, Total 151 mcg/dL (261-462); Potassium 3.5 mmol/L (3.5-5.1); Sodium 139 mmol/L (136-145); Transferrin, Serum 121 mg/dL (163-344)
[2021-01-18 07:48] LABS: Band 23 % (5-11); Eosinophils 1 % (0-10); Hemoglobin 9.5 g/dL (14.0-18.0); Lymphocytes 15 % (21-51); MDiff Complete? YES; Mean Corpuscular HGB CONC 32.3 g/dL (32.0-36.0); Mean Corpuscular Hemoglobin 23.3 pg (27.0-31.0); Mean Platelet Volume 9.6 fL (7.4-10.4); Monocytes 2 % (0-10); Neutrophil 59 % (42-75); Platelet Count 322 thou/uL (130-400); RBC Distribution Width 13.9 % (11.5-14.5)
[2021-01-18] MEDS ORDERED: Polyethylene Glycol 3350 17 GM Packet PO SCH (09:00)
[2021-01-18] MEDS ORDERED: FLU VACC QS2021-22(65YR UP)/PF 240 MCG/0.7 ML SYRINGE IM ONE (09:00)
[2021-01-18] MEDS: Cholecalciferol 1,000 UNITS (25 MCG) TAB PO SCH (11:22)
[2021-01-18] MEDS: Cyanocobalamin (Vitamin B-12) 1,000 MCG TAB PO SCH (11:22)
[2021-01-18] MEDS: Ferrous Sulfate 325 MG TAB PO SCH (11:22)
[2021-01-18] MEDS: Gabapentin 300 MG CAP PO SCH ×3 (11:22→20:50)
[2021-01-18] MEDS: Aspirin 81 mg Enteric Coated Tablet PO SCH (11:22)
[2021-01-18] MEDS: Lactated Ringer's 1,000 ML IV SCH ×3 (15:39→21:01)
[2021-01-18 16:49] LABS: SARS-CoV-2 PCR by NAA Not Detected (NotDetected)
[2021-01-18] MEDS: cefTRIAXone\\ROCEPHIN 1 GM in Sodium Chloride 0.9% 100 ML IVPB SCH (20:49)
[2021-01-18] MEDS: Tamsulosin HCl 0.4 MG CAP PO SCH (20:50)
[2021-01-18] MEDS: Atorvastatin Calcium 20 MG TAB PO SCH (20:50)
[2021-01-19] MEDS: Lactated Ringer's 1,000 ML IV SCH ×3 (02:02→17:18)
[2021-01-19] MEDS: Gabapentin 300 MG CAP PO SCH ×3 (09:35→20:51)
[2021-01-19] MEDS: Aspirin 81 mg Enteric Coated Tablet PO SCH (09:41)
[2021-01-19] MEDS: Cyanocobalamin (Vitamin B-12) 1,000 MCG TAB PO SCH (09:41)
[2021-01-19] MEDS: Ferrous Sulfate 325 MG TAB PO SCH (09:41)
[2021-01-19] MEDS: Cholecalciferol 1,000 UNITS (25 MCG) TAB PO SCH (09:41)
[2021-01-19 14:56] LABS: #Eosinphils 0.1 thou/uL (0.0-0.7); #Lymphocytes 1.8 thou/uL (1.20-3.40); #Monocytes 1.1 thou/uL (0.11-0.59); #Neutrophils 7.5 thou/uL (1.40-6.50); %Basophils 0.3 % (0.0-1.0); %Eosinophils 0.7 % (0.0-10.0); %Lymphocytes 16.9 % (21.0-51.0); %Monocytes 10.8 % (0.0-10.0); %Neutrophils 71.3 % (42.0-75.0); Hemoglobin 9.8 g/dL (14.0-18.0); Mean Corpuscular HGB CONC 31.4 g/dL (32.0-36.0); Mean Corpuscular Hemoglobin 22.4 pg (27.0-31.0); Mean Corpuscular Volume 71.3 fL (78.0-98.0); Mean Platelet Volume 8.9 fL (7.4-10.4); Platelet Count 409 thou/uL (130-400); Red Blood Cell (RBC) Count 4.35 mill/uL (4.70-6.10); White Blood Cell (WBC) Count 10.5 thou/uL (4.8-10.8)
[2021-01-19 15:18] LABS: Anion Gap 16 mmol/L (10-20); BUN (Urea Nitrogen) 48 mg/dL (8.4-25.7); Calc. Creatinine Clearance 89 mL/min (70-130); Calcium 8.7 mg/dL (7.8-10.44); Carbon Dioxide 26 mmol/L (23-31); Chloride 115 mmol/L (98-107); Glucose 98 mg/dL (83-110); Potassium 3.6 mmol/L (3.5-5.1); Sodium 153 mmol/L (136-145)
[2021-01-19] MEDS ORDERED: Lisinopril 5 MG TAB PO SCH (16:00)
[2021-01-19] MEDS: Atorvastatin Calcium 20 MG TAB PO SCH (20:51)
[2021-01-19] MEDS: Tamsulosin HCl 0.4 MG CAP PO SCH (20:51)
[2021-01-19] MEDS: cefTRIAXone\\ROCEPHIN 1 GM in Sodium Chloride 0.9% 100 ML IVPB SCH (20:51)
[2021-01-19 21:21] LABS: Anion Gap 17 mmol/L (10-20); BUN (Urea Nitrogen) 44 mg/dL (8.4-25.7); Calc. Creatinine Clearance 93 mL/min (70-130); Calcium 8.6 mg/dL (7.8-10.44); Carbon Dioxide 25 mmol/L (23-31); Chloride 117 mmol/L (98-107); Glucose 93 mg/dL (83-110); Potassium 3.4 mmol/L (3.5-5.1); Sodium 156 mmol/L (136-145)
[2021-01-20 02:17] LABS: Anion Gap 14 mmol/L (10-20); BUN (Urea Nitrogen) 40 mg/dL (8.4-25.7); Calc. Creatinine Clearance 103 mL/min (70-130); Calcium 8.4 mg/dL (7.8-10.44); Carbon Dioxide 25 mmol/L (23-31); Chloride 120 mmol/L (98-107); Glucose 104 mg/dL (83-110); Potassium 3.3 mmol/L (3.5-5.1); Sodium 156 mmol/L (136-145)
[2021-01-20] MEDS ORDERED: Dextrose 5% w/ 20 mEq KCl 1,000 ML IV SCH (02:30)
[2021-01-20] MEDS ORDERED: Dextrose 5% in Water 1,000 ML IV SCH (02:30)
[2021-01-20] MEDS ORDERED: Potassium Chloride 20 MEQ in Dextrose 5% in Water 1,000 ML IV SCH (03:15)
[2021-01-20] MEDS: Lactated Ringer's 1,000 ML IV SCH (05:07)
[2021-01-20 06:01] LABS: #Eosinphils 0.1 thou/uL (0.0-0.7); #Lymphocytes 1.7 thou/uL (1.20-3.40); #Monocytes 1.2 thou/uL (0.11-0.59); #Neutrophils 6.7 thou/uL (1.40-6.50); %Basophils 0.1 % (0.0-1.0); %Eosinophils 1.3 % (0.0-10.0); %Lymphocytes 17.2 % (21.0-51.0); %Monocytes 12.1 % (0.0-10.0); %Neutrophils 69.3 % (42.0-75.0); Hemoglobin 8.8 g/dL (14.0-18.0); Mean Corpuscular Hemoglobin 23.2 pg (27.0-31.0); Mean Corpuscular Volume 72.5 fL (78.0-98.0); Mean Platelet Volume 9.2 fL (7.4-10.4); Platelet Count 356 thou/uL (130-400); RBC Distribution Width 14.1 % (11.5-14.5); White Blood Cell (WBC) Count 9.7 thou/uL (4.8-10.8)
[2021-01-20 06:20] LABS: Anion Gap 16 mmol/L (10-20); BUN (Urea Nitrogen) 33 mg/dL (8.4-25.7); Calc. Creatinine Clearance 89 mL/min (70-130); Calcium 8.6 mg/dL (7.8-10.44); Carbon Dioxide 26 mmol/L (23-31); Chloride 119 mmol/L (98-107); Glucose 125 mg/dL (83-110); Potassium 3.5 mmol/L (3.5-5.1); Sodium 157 mmol/L (136-145)
[2021-01-20 08:15] LABS: % Free PSA 26.8 % (.); Total PSA 11.6 ng/mL (0.0-4.0)
[2021-01-20] MEDS ORDERED: Lisinopril 5 MG TAB PO SCH ×2 (09:00→10:06)
[2021-01-20] MEDS: Cholecalciferol 1,000 UNITS (25 MCG) TAB PO SCH (09:14)
[2021-01-20] MEDS: Gabapentin 300 MG CAP PO SCH ×3 (09:14→20:23)
[2021-01-20] MEDS: Ferrous Sulfate 325 MG TAB PO SCH (09:15)
[2021-01-20] MEDS: Cyanocobalamin (Vitamin B-12) 1,000 MCG TAB PO SCH (09:15)
[2021-01-20] MEDS: Aspirin 81 mg Enteric Coated Tablet PO SCH (10:04)
[2021-01-20] MEDS: Dextrose 5% in Water 1,000 ML IV SCH ×2 (11:52→19:06)
[2021-01-20 12:20] LABS: Anion Gap 11 mmol/L (10-20); BUN (Urea Nitrogen) 29 mg/dL (8.4-25.7); Calc. Creatinine Clearance 88 mL/min (70-130); Calcium 8.6 mg/dL (7.8-10.44); Carbon Dioxide 28 mmol/L (23-31); Chloride 119 mmol/L (98-107); Glucose 163 mg/dL (83-110); Potassium 3.3 mmol/L (3.5-5.1); Sodium 155 mmol/L (136-145)
[2021-01-20] MEDS ORDERED: Pantoprazole 40 MG VIAL IVP SCH (13:00)
[2021-01-20] MEDS ORDERED: Potassium Chloride 20 MEQ in Premix Bag 1 BAG IVPB SCH ×2 (14:00→23:00)
[2021-01-20 16:12] LABS: Anion Gap 12 mmol/L (10-20); BUN (Urea Nitrogen) 26 mg/dL (8.4-25.7); Calc. Creatinine Clearance 93 mL/min (70-130); Calcium 8.4 mg/dL (7.8-10.44); Carbon Dioxide 27 mmol/L (23-31); Chloride 119 mmol/L (98-107); Glucose 157 mg/dL (83-110); Potassium 3.4 mmol/L (3.5-5.1); Sodium 155 mmol/L (136-145)
[2021-01-20] MEDS ORDERED: Lorazepam 2 MG/ML VIAL SLOW IVP PRN (17:30)
[2021-01-20] MEDS ORDERED: Ketorolac Tromethamine 30 MG/ML VIAL IVP SCH (17:45)
[2021-01-20] MEDS ORDERED: Lorazepam 2 MG/ML VIAL SLOW IVP SCH (17:45)
[2021-01-20] MEDS ORDERED: Ketorolac Tromethamine 60 MG/2 ML VIAL IM SCH (17:45)
[2021-01-20] MEDS ORDERED: Ketorolac Tromethamine 30 MG/ML VIAL IM SCH (18:45)
[2021-01-20] MEDS: Atorvastatin Calcium 20 MG TAB PO SCH (20:23)
[2021-01-20] MEDS: Tamsulosin HCl 0.4 MG CAP PO SCH (20:23)
[2021-01-20] MEDS: Melatonin 3 MG TAB PO PRN (20:24)
[2021-01-20] MEDS: Pantoprazole 40 MG VIAL IVP SCH (20:27)
[2021-01-20 21:00] LABS: Anion Gap 11 mmol/L (10-20); BUN (Urea Nitrogen) 24 mg/dL (8.4-25.7); Calc. Creatinine Clearance 88 mL/min (70-130); Calcium 8.7 mg/dL (7.8-10.44); Carbon Dioxide 28 mmol/L (23-31); Chloride 118 mmol/L (98-107); Glucose 130 mg/dL (83-110); Potassium 3.3 mmol/L (3.5-5.1); Sodium 154 mmol/L (136-145)
[2021-01-21] MEDS: Dextrose 5% in Water 1,000 ML IV SCH ×4 (00:43→21:40)
[2021-01-21] MEDS ORDERED: Ketorolac Tromethamine 30 MG/ML VIAL ONE (02:15)
[2021-01-21 04:15] LABS: Anion Gap 12 mmol/L (10-20); BUN (Urea Nitrogen) 22 mg/dL (8.4-25.7); Calc. Creatinine Clearance 88 mL/min (70-130); Calcium 8.4 mg/dL (7.8-10.44); Carbon Dioxide 28 mmol/L (23-31); Chloride 118 mmol/L (98-107); Glucose 142 mg/dL (83-110); Potassium 3.7 mmol/L (3.5-5.1); Sodium 154 mmol/L (136-145)
[2021-01-21] MEDS ORDERED: Ketorolac Tromethamine 30 MG/ML VIAL IVP SCH (04:30)
[2021-01-21 05:12] LABS: #Eosinphils 0.2 thou/uL (0.0-0.7); #Monocytes 1.3 thou/uL (0.11-0.59); #Neutrophils 6.7 thou/uL (1.40-6.50); %Basophils 0.3 % (0.0-1.0); %Eosinophils 2.4 % (0.0-10.0); %Lymphocytes 19.6 % (21.0-51.0); %Monocytes 12.7 % (0.0-10.0); Hemoglobin 8.3 g/dL (14.0-18.0); Mean Corpuscular HGB CONC 31.2 g/dL (32.0-36.0); Mean Corpuscular Hemoglobin 22.7 pg (27.0-31.0); Mean Corpuscular Volume 72.7 fL (78.0-98.0); Mean Platelet Volume 8.8 fL (7.4-10.4); Platelet Count 336 thou/uL (130-400); RBC Distribution Width 14.1 % (11.5-14.5); Red Blood Cell (RBC) Count 3.65 mill/uL (4.70-6.10); White Blood Cell (WBC) Count 10.3 thou/uL (4.8-10.8)
[2021-01-21 05:27] LABS: Anion Gap 10 mmol/L (10-20); BUN (Urea Nitrogen) 24 mg/dL (8.4-25.7); Calc. Creatinine Clearance 90 mL/min (70-130); Calcium 8.7 mg/dL (7.8-10.44); Carbon Dioxide 29 mmol/L (23-31); Chloride 116 mmol/L (98-107); Glucose 129 mg/dL (83-110); Potassium 3.4 mmol/L (3.5-5.1); Sodium 152 mmol/L (136-145)
[2021-01-21] MEDS ORDERED: PROPOFOL 200 MG/20 ML VIAL ONE (09:05)
[2021-01-21] MEDS ORDERED: Lidocaine 1% PF 5 ML VIAL ONE (09:05)
[2021-01-21] MEDS ORDERED: PHENYLEPHRINE-NS 100 MCG/ML 10 ML SYRINGE ONE (09:05)
[2021-01-21] MEDS ORDERED: Ondansetron HCl/PF 4 MG/2 ML Vial IVP PRN (09:14)
[2021-01-21 10:03] LABS: Magnesium 1.8 mg/dL (1.6-2.6)
[2021-01-21] MEDS: Cholecalciferol 1,000 UNITS (25 MCG) TAB PO SCH (10:34)
[2021-01-21] MEDS: Gabapentin 300 MG CAP PO SCH ×3 (10:34→21:39)
[2021-01-21] MEDS: Cyanocobalamin (Vitamin B-12) 1,000 MCG TAB PO SCH (10:34)
[2021-01-21] MEDS: Pantoprazole 40 MG VIAL IVP SCH ×2 (10:35→21:40)
[2021-01-21] MEDS: Aspirin 81 mg Enteric Coated Tablet PO SCH (10:35)
[2021-01-21] MEDS: Lisinopril 10 MG TAB PO SCH (10:35)
[2021-01-21] MEDS: Ammonium Lactate 12% Lotion 225 GM BOT TOP SCH ×2 (13:23→21:56)
[2021-01-21 16:07] LABS: Anion Gap 10 mmol/L (10-20); BUN (Urea Nitrogen) 18 mg/dL (8.4-25.7); Calc. Creatinine Clearance 85 mL/min (70-130); Calcium 8.7 mg/dL (7.8-10.44); Carbon Dioxide 29 mmol/L (23-31); Chloride 116 mmol/L (98-107); Glucose 111 mg/dL (83-110); Potassium 3.5 mmol/L (3.5-5.1); Sodium 151 mmol/L (136-145)
[2021-01-21] MEDS: Tamsulosin HCl 0.4 MG CAP PO SCH (21:39)
[2021-01-21] MEDS: Atorvastatin Calcium 20 MG TAB PO SCH (21:39)
[2021-01-21] MEDS: Melatonin 3 MG TAB PO PRN (21:40)
[2021-01-21 23:00] LABS: Anion Gap 10 mmol/L (10-20); BUN (Urea Nitrogen) 16 mg/dL (8.4-25.7); Calc. Creatinine Clearance 90 mL/min (70-130); Calcium 8.1 mg/dL (7.8-10.44); Carbon Dioxide 27 mmol/L (23-31); Chloride 115 mmol/L (98-107); Glucose 111 mg/dL (83-110); Potassium 3.7 mmol/L (3.5-5.1); Sodium 148 mmol/L (136-145)
[2021-01-22 01:48] LABS: Anion Gap 11 mmol/L (10-20); BUN (Urea Nitrogen) 17 mg/dL (8.4-25.7); Calc. Creatinine Clearance 90 mL/min (70-130); Calcium 8.4 mg/dL (7.8-10.44); Carbon Dioxide 28 mmol/L (23-31); Chloride 115 mmol/L (98-107); Glucose 110 mg/dL (83-110); Potassium 3.7 mmol/L (3.5-5.1); Sodium 150 mmol/L (136-145)
[2021-01-22 05:55] LABS: #Basophils 0.1 thou/uL (0.0-0.2); #Eosinphils 0.3 thou/uL (0.0-0.7); #Lymphocytes 2.4 thou/uL (1.20-3.40); #Monocytes 1.1 thou/uL (0.11-0.59); #Neutrophils 6.3 thou/uL (1.40-6.50); %Basophils 0.6 % (0.0-1.0); %Eosinophils 2.9 % (0.0-10.0); %Lymphocytes 23.5 % (21.0-51.0); %Monocytes 10.7 % (0.0-10.0); %Neutrophils 62.3 % (42.0-75.0); Hemoglobin 8.5 g/dL (14.0-18.0); Mean Corpuscular HGB CONC 31.3 g/dL (32.0-36.0); Mean Corpuscular Hemoglobin 22.9 pg (27.0-31.0); Mean Corpuscular Volume 73.3 fL (78.0-98.0); Mean Platelet Volume 9.1 fL (7.4-10.4); Platelet Count 324 thou/uL (130-400); RBC Distribution Width 14.2 % (11.5-14.5); Red Blood Cell (RBC) Count 3.72 mill/uL (4.70-6.10); White Blood Cell (WBC) Count 10.2 thou/uL (4.8-10.8)
[2021-01-22 06:03] LABS: Anion Gap 11 mmol/L (10-20); BUN (Urea Nitrogen) 15 mg/dL (8.4-25.7); Calc. Creatinine Clearance 91 mL/min (70-130); Calcium 8.2 mg/dL (7.8-10.44); Carbon Dioxide 28 mmol/L (23-31); Chloride 115 mmol/L (98-107); Glucose 101 mg/dL (83-110); Potassium 3.8 mmol/L (3.5-5.1); Sodium 150 mmol/L (136-145)
[2021-01-22 07:16] LABS: Norovirus GI Negative (Negative); Norovirus GII Negative (Negative)
[2021-01-22] MEDS: Gabapentin 300 MG CAP PO SCH ×3 (09:14→22:36)
[2021-01-22] MEDS: Aspirin 81 mg Enteric Coated Tablet PO SCH (09:14)
[2021-01-22] MEDS: Lisinopril 10 MG TAB PO SCH (09:14)
[2021-01-22] MEDS: Cyanocobalamin (Vitamin B-12) 1,000 MCG TAB PO SCH (09:14)
[2021-01-22] MEDS: metFORMIN 500 MG TAB PO SCH ×2 (09:14→17:24)
[2021-01-22] MEDS: Dextrose 5% in Water 1,000 ML IV SCH ×2 (09:15→15:01)
[2021-01-22] MEDS: Cholecalciferol 1,000 UNITS (25 MCG) TAB PO SCH (09:15)
[2021-01-22] MEDS: Ammonium Lactate 12% Lotion 225 GM BOT TOP SCH ×2 (09:16→22:56)
[2021-01-22] MEDS: Pantoprazole 40 MG VIAL IVP SCH ×2 (09:17→22:51)
[2021-01-22 09:33] LABS: Anion Gap 13 mmol/L (10-20); BUN (Urea Nitrogen) 13 mg/dL (8.4-25.7); Calc. Creatinine Clearance 93 mL/min (70-130); Calcium 8.3 mg/dL (7.8-10.44); Carbon Dioxide 27 mmol/L (23-31); Chloride 113 mmol/L (98-107); Glucose 120 mg/dL (83-110); Potassium 3.8 mmol/L (3.5-5.1); Sodium 149 mmol/L (136-145)
[2021-01-22 11:25] LABS: Phosphorus 2.1 mg/dL (2.3-4.7)
[2021-01-22 13:27] LABS: Anion Gap 13 mmol/L (10-20); BUN (Urea Nitrogen) 14 mg/dL (8.4-25.7); Calc. Creatinine Clearance 83 mL/min (70-130); Calcium 7.7 mg/dL (7.8-10.44); Carbon Dioxide 25 mmol/L (23-31); Chloride 114 mmol/L (98-107); Glucose 210 mg/dL (83-110); Potassium 3.7 mmol/L (3.5-5.1); Sodium 148 mmol/L (136-145)
[2021-01-22] MEDS ORDERED: Sodium Chloride 0.9% 500 ML IV SCH (15:30)
[2021-01-22 17:31] LABS: Anion Gap 13 mmol/L (10-20); BUN (Urea Nitrogen) 15 mg/dL (8.4-25.7); Calc. Creatinine Clearance 82 mL/min (70-130); Calcium 7.7 mg/dL (7.8-10.44); Carbon Dioxide 24 mmol/L (23-31); Chloride 114 mmol/L (98-107); Glucose 161 mg/dL (83-110); Potassium 4.1 mmol/L (3.5-5.1); Sodium 147 mmol/L (136-145)
[2021-01-22] MEDS: Atorvastatin Calcium 20 MG TAB PO SCH (22:51)
[2021-01-22] MEDS: Tamsulosin HCl 0.4 MG CAP PO SCH (22:52)
[2021-01-23 05:07] LABS: #Eosinphils 0.1 thou/uL (0.0-0.7); #Lymphocytes 2.5 thou/uL (1.20-3.40); #Monocytes 0.9 thou/uL (0.11-0.59); #Neutrophils 7.3 thou/uL (1.40-6.50); %Eosinophils 0.9 % (0.0-10.0); %Lymphocytes 22.9 % (21.0-51.0); %Monocytes 8.6 % (0.0-10.0); %Neutrophils 67.6 % (42.0-75.0); Mean Corpuscular HGB CONC 30.6 g/dL (32.0-36.0); Mean Corpuscular Hemoglobin 22.3 pg (27.0-31.0); Mean Corpuscular Volume 72.9 fL (78.0-98.0); Mean Platelet Volume 8.8 fL (7.4-10.4); Platelet Count 305 thou/uL (130-400); RBC Distribution Width 14.3 % (11.5-14.5); Red Blood Cell (RBC) Count 2.69 mill/uL (4.70-6.10); White Blood Cell (WBC) Count 10.8 thou/uL (4.8-10.8)
[2021-01-23 05:29] LABS: Anion Gap 13 mmol/L (10-20); BUN (Urea Nitrogen) 24 mg/dL (8.4-25.7); Calc. Creatinine Clearance 89 mL/min (70-130); Calcium 7.8 mg/dL (7.8-10.44); Carbon Dioxide 25 mmol/L (23-31); Chloride 112 mmol/L (98-107); Glucose 106 mg/dL (83-110); Potassium 4.3 mmol/L (3.5-5.1); Sodium 146 mmol/L (136-145)
[2021-01-23] MEDS: Dextrose 5% in Water 1,000 ML IV SCH ×3 (09:47→14:47)
[2021-01-23] MEDS: Gabapentin 300 MG CAP PO SCH ×3 (09:47→20:16)
[2021-01-23] MEDS: Cyanocobalamin (Vitamin B-12) 1,000 MCG TAB PO SCH (09:48)
[2021-01-23] MEDS: metFORMIN 500 MG TAB PO SCH ×2 (09:48→14:43)
[2021-01-23] MEDS: Ammonium Lactate 12% Lotion 225 GM BOT TOP SCH ×2 (09:48→20:55)
[2021-01-23] MEDS: Cholecalciferol 1,000 UNITS (25 MCG) TAB PO SCH (09:48)
[2021-01-23] MEDS: Pantoprazole 40 MG VIAL IVP SCH (09:49)
[2021-01-23] MEDS: Lisinopril 10 MG TAB PO SCH (09:49)
[2021-01-23] MEDS ORDERED: Ketamine 50 MG/ML (10ML VIAL) ONE (11:34)
[2021-01-23] MEDS ORDERED: PROPOFOL 200 MG/20 ML VIAL ONE (11:41)
[2021-01-23 11:55] LABS: Phosphorus 3.1 mg/dL (2.3-4.7)
[2021-01-23] MEDS ORDERED: EPINEPHrine 1 MG/10 ML Abboject SYRINGE ONE (12:00)
[2021-01-23] MEDS: Pantoprazole 80 MG, Admixture Fee 1 EACH in Sodium Chloride 0.9% 100 ML IVPB SCH (13:25)
[2021-01-23 14:10] LABS: Anion Gap 12 mmol/L (10-20); BUN (Urea Nitrogen) 26 mg/dL (8.4-25.7); Calc. Creatinine Clearance 91 mL/min (70-130); Calcium 7.6 mg/dL (7.8-10.44); Carbon Dioxide 21 mmol/L (23-31); Chloride 115 mmol/L (98-107); Glucose 115 mg/dL (83-110); Potassium 4.5 mmol/L (3.5-5.1); Sodium 143 mmol/L (136-145)
[2021-01-23 16:12] LABS: Hemoglobin 7.7 g/dL (14.0-18.0)
[2021-01-23] MEDS: Atorvastatin Calcium 20 MG TAB PO SCH (20:16)
[2021-01-23] MEDS: Tamsulosin HCl 0.4 MG CAP PO SCH (20:16)
[2021-01-24 05:01] LABS: #Basophils 0.1 thou/uL (0.0-0.2); #Eosinphils 0.3 thou/uL (0.0-0.7); #Lymphocytes 2.5 thou/uL (1.20-3.40); #Monocytes 0.8 thou/uL (0.11-0.59); #Neutrophils 5.5 thou/uL (1.40-6.50); %Basophils 0.7 % (0.0-1.0); %Eosinophils 2.9 % (0.0-10.0); %Lymphocytes 27.4 % (21.0-51.0); %Monocytes 8.9 % (0.0-10.0); %Neutrophils 60.1 % (42.0-75.0); Hemoglobin 7.1 g/dL (14.0-18.0); Mean Corpuscular HGB CONC 33.8 g/dL (32.0-36.0); Mean Corpuscular Volume 73.9 fL (78.0-98.0); Mean Platelet Volume 8.7 fL (7.4-10.4); Platelet Count 295 thou/uL (130-400); Red Blood Cell (RBC) Count 2.82 mill/uL (4.70-6.10); White Blood Cell (WBC) Count 9.1 thou/uL (4.8-10.8)
[2021-01-24 05:25] LABS: Anion Gap 10 mmol/L (10-20); BUN (Urea Nitrogen) 19 mg/dL (8.4-25.7); Calc. Creatinine Clearance 94 mL/min (70-130); Calcium 7.9 mg/dL (7.8-10.44); Carbon Dioxide 26 mmol/L (23-31); Chloride 114 mmol/L (98-107); Glucose 98 mg/dL (83-110); Potassium 3.9 mmol/L (3.5-5.1); Sodium 146 mmol/L (136-145)
[2021-01-24] MEDS: Ammonium Lactate 12% Lotion 225 GM BOT TOP SCH ×2 (08:57→20:04)
[2021-01-24] MEDS: metFORMIN 500 MG TAB PO SCH ×2 (08:57→18:02)
[2021-01-24] MEDS: Cyanocobalamin (Vitamin B-12) 1,000 MCG TAB PO SCH (08:58)
[2021-01-24] MEDS: Cholecalciferol 1,000 UNITS (25 MCG) TAB PO SCH (08:58)
[2021-01-24] MEDS: Gabapentin 300 MG CAP PO SCH ×3 (08:58→20:04)
[2021-01-24] MEDS: Lisinopril 10 MG TAB PO SCH (08:59)
[2021-01-24 09:25] LABS: Hemoglobin 6.6 g/dL (14.0-18.0)
[2021-01-24 18:21] LABS: Hemoglobin 8.3 g/dL (14.0-18.0)
[2021-01-24] MEDS: Tamsulosin HCl 0.4 MG CAP PO SCH (20:04)
[2021-01-24] MEDS: Atorvastatin Calcium 20 MG TAB PO SCH (20:04)
[2021-01-24] MEDS: Pantoprazole 80 MG, Admixture Fee 1 EACH in Sodium Chloride 0.9% 100 ML IVPB SCH (21:51)
[2021-01-25 08:06] LABS: #Eosinphils 0.1 thou/uL (0.0-0.7); #Lymphocytes 1.7 thou/uL (1.20-3.40); #Monocytes 0.7 thou/uL (0.11-0.59); #Neutrophils 5.4 thou/uL (1.40-6.50); %Basophils 0.5 % (0.0-1.0); %Eosinophils 1.7 % (0.0-10.0); %Lymphocytes 21.5 % (21.0-51.0); %Monocytes 8.7 % (0.0-10.0); %Neutrophils 67.5 % (42.0-75.0); Hemoglobin 7.4 g/dL (14.0-18.0); Mean Corpuscular HGB CONC 33.3 g/dL (32.0-36.0); Mean Corpuscular Hemoglobin 25.4 pg (27.0-31.0); Mean Corpuscular Volume 76.3 fL (78.0-98.0); Mean Platelet Volume 8.3 fL (7.4-10.4); Platelet Count 283 thou/uL (130-400); RBC Distribution Width 17.3 % (11.5-14.5); Red Blood Cell (RBC) Count 2.93 mill/uL (4.70-6.10); White Blood Cell (WBC) Count 8.1 thou/uL (4.8-10.8)
[2021-01-25 08:23] LABS: Anion Gap 9 mmol/L (10-20); BUN (Urea Nitrogen) 10 mg/dL (8.4-25.7); Calc. Creatinine Clearance 100 mL/min (70-130); Calcium 7.7 mg/dL (7.8-10.44); Carbon Dioxide 26 mmol/L (23-31); Chloride 113 mmol/L (98-107); Glucose 86 mg/dL (83-110); Potassium 3.7 mmol/L (3.5-5.1); Sodium 144 mmol/L (136-145)
[2021-01-25] MEDS: Cholecalciferol 1,000 UNITS (25 MCG) TAB PO SCH (08:40)
[2021-01-25] MEDS: Cyanocobalamin (Vitamin B-12) 1,000 MCG TAB PO SCH (08:40)
[2021-01-25] MEDS: metFORMIN 500 MG TAB PO SCH ×2 (08:40→16:09)
[2021-01-25] MEDS: Lisinopril 10 MG TAB PO SCH (08:40)
[2021-01-25] MEDS: Gabapentin 300 MG CAP PO SCH ×3 (08:41→20:19)
[2021-01-25] MEDS: Ammonium Lactate 12% Lotion 225 GM BOT TOP SCH ×2 (08:41→20:19)
[2021-01-25] MEDS: Pantoprazole 80 MG, Admixture Fee 1 EACH in Sodium Chloride 0.9% 100 ML IVPB SCH ×2 (11:22→21:23)
[2021-01-25] MEDS: Acetaminophen 325 MG TAB PO SCH ×2 (13:06→18:09)
[2021-01-25] MEDS: Atorvastatin Calcium 20 MG TAB PO SCH (20:19)
[2021-01-25] MEDS: Tamsulosin HCl 0.4 MG CAP PO SCH (20:19)
[2021-01-26] MEDS: Acetaminophen 325 MG TAB PO SCH ×4 (01:49→17:45)
[2021-01-26] MEDS: Pantoprazole 80 MG, Admixture Fee 1 EACH in Sodium Chloride 0.9% 100 ML IVPB SCH (06:20)
[2021-01-26] MEDS: Cholecalciferol 1,000 UNITS (25 MCG) TAB PO SCH (08:12)
[2021-01-26] MEDS: Lisinopril 10 MG TAB PO SCH (08:13)
[2021-01-26] MEDS: Gabapentin 300 MG CAP PO SCH ×3 (08:13→20:11)
[2021-01-26] MEDS: metFORMIN 500 MG TAB PO SCH ×2 (08:13→16:43)
[2021-01-26] MEDS: Cyanocobalamin (Vitamin B-12) 1,000 MCG TAB PO SCH (08:13)
[2021-01-26] MEDS: Ammonium Lactate 12% Lotion 225 GM BOT TOP SCH ×2 (09:17→20:12)
[2021-01-26 09:27] LABS: Anion Gap 9 mmol/L (10-20); BUN (Urea Nitrogen) 9 mg/dL (8.4-25.7); Calc. Creatinine Clearance 95 mL/min (70-130); Calcium 8.1 mg/dL (7.8-10.44); Carbon Dioxide 26 mmol/L (23-31); Chloride 114 mmol/L (98-107); Glucose 100 mg/dL (83-110); Potassium 3.7 mmol/L (3.5-5.1); Sodium 145 mmol/L (136-145)
[2021-01-26 09:35] LABS: #Eosinphils 0.1 thou/uL (0.0-0.7); #Lymphocytes 1.8 thou/uL (1.20-3.40); #Monocytes 0.8 thou/uL (0.11-0.59); #Neutrophils 6.4 thou/uL (1.40-6.50); %Basophils 0.4 % (0.0-1.0); %Eosinophils 1.4 % (0.0-10.0); %Monocytes 8.3 % (0.0-10.0); Hemoglobin 8.2 g/dL (14.0-18.0); Mean Corpuscular HGB CONC 31.3 g/dL (32.0-36.0); Mean Corpuscular Hemoglobin 24.2 pg (27.0-31.0); Mean Corpuscular Volume 77.1 fL (78.0-98.0); Mean Platelet Volume 9.1 fL (7.4-10.4); Platelet Count 300 thou/uL (130-400); RBC Distribution Width 17.9 % (11.5-14.5); Red Blood Cell (RBC) Count 3.41 mill/uL (4.70-6.10); White Blood Cell (WBC) Count 9.1 thou/uL (4.8-10.8)
[2021-01-26 11:51] LABS: SARS-CoV-2 PCR by NAA Not Detected (NotDetected)
[2021-01-26 14:52] LABS: Hemoglobin 8.1 g/dL (14.0-18.0)
[2021-01-26] MEDS: Atorvastatin Calcium 20 MG TAB PO SCH (20:11)
[2021-01-26] MEDS: Tamsulosin HCl 0.4 MG CAP PO SCH (20:11)
[2021-01-26 20:22] VITALS: BP 125/61; TEMP 98.1
[2021-01-29] MEDS ORDERED: Acetaminophen 325 MG TAB PO PRN (12:35)
[2021-01-29] MEDS ORDERED: Ondansetron PF 4 MG/2 ML Vial IVP PRN (12:35)
== END 2021-01-26 20:40 | DRG 871 ==
LOC: ERS 17:56 → 2NO 21:51 → ONC 01-24 20:59
PROVIDERS: ADMIT Student in an Organized Health Care Education/Training Program; ATTEND Student in an Organized Health Care Education/Training Program
PROC: 0DB68ZX Excision of Stomach, Via Natural or Artificial Opening Endoscopic, Diagnostic (ICD-10-PCS; 2021-01-21)
PROC: 0W3P8ZZ Control Bleeding in Gastrointestinal Tract, Via Natural or Artificial Opening Endoscopic (ICD-10-PCS; principal; 2021-01-23)
PROC: 30233N1 Transfusion of Nonautologous Red Blood Cells into Peripheral Vein, Percutaneous Approach (ICD-10-PCS; 2021-01-23)
DX: A41.52 Sepsis due to Pseudomonas (principal); K25.4 Chronic or unspecified gastric ulcer with hemorrhage; L89.153 Pressure ulcer of sacral region, stage 3; N41.0 Acute prostatitis; E87.0 Hyperosmolality and hypernatremia; N17.9 Acute kidney failure, unspecified; E46 Unspecified protein-calorie malnutrition; N39.0 Urinary tract infection, site not specified; D62 Acute posthemorrhagic anemia; Z20.822 Contact with and (suspected) exposure to COVID-19; Z66 Do not resuscitate; K44.9 Diaphragmatic hernia without obstruction or gangrene; E87.6 Hypokalemia; L89.152 Pressure ulcer of sacral region, stage 2; E83.39 Other disorders of phosphorus metabolism; D63.8 Anemia in other chronic diseases classified elsewhere; B35.1 Tinea unguium; N40.0 Benign prostatic hyperplasia without lower urinary tract symptoms; R19.7 Diarrhea, unspecified; I45.10 Unspecified right bundle-branch block; I10 Essential (primary) hypertension; I35.0 Nonrheumatic aortic (valve) stenosis; E78.5 Hyperlipidemia, unspecified; E11.9 Type 2 diabetes mellitus without complications; M54.16 Radiculopathy, lumbar region; M19.90 Unspecified osteoarthritis, unspecified site; F31.9 Bipolar disorder, unspecified; E66.9 Obesity, unspecified; K31.9 Disease of stomach and duodenum, unspecified; Z96.653 Presence of artificial knee joint, bilateral; F03.90 Unspecified dementia, unspecified severity, without behavioral disturbance, psychotic disturbance, mood disturbance, and anxiety; E86.0 Dehydration; Z68.29 Body mass index [BMI] 29.0-29.9, adult; Z87.891 Personal history of nicotine dependence; Z79.899 Other long term (current) drug therapy; Z79.82 Long term (current) use of aspirin; Z79.84 Long term (current) use of oral hypoglycemic drugs
CPT/HCPCS: 36415; 36416; 36430; 51701; 71045; 74176; 80048; 80053; 81003; 81015; 82274; 82550; 82570; 82728; 83036; 83540; 83550; 83605; 83630; 83735; 83880; 84100; 84134; 84145; 84153; 84154; 84466; 84540; 85025; 86850; 86900; 86901; 87015; 87040; 87045; 87046; 87077; 87086; 87186; 87206; 87324; 87427; 87449; 87798; 88305; 88312; 93005; 96365; C9113; J0171; J0696; J1885; J2060; J2704; J3480; J3490; J7030; J7070; J7120; P9016; U0003; U0005

== ENCOUNTER 2021-01-29 09:54 | Inpatient (IN) | payer MEDICARE, OTHER ==
[2021-01-29] MEDS ORDERED: Pantoprazole 40 MG VIAL ONE (10:26)
[2021-01-29] MEDS ORDERED: Pantoprazole 80 MG, Admixture Fee 1 EACH in Sodium Chloride 0.9% 100 ML IVPB SCH (10:45)
[2021-01-29 10:55] LABS: #Eosinphils 0.1 thou/uL (0.0-0.7); #Lymphocytes 2.5 thou/uL (1.20-3.40); #Monocytes 0.8 thou/uL (0.11-0.59); #Neutrophils 8.6 thou/uL (1.40-6.50); %Basophils 0.4 % (0.0-1.0); %Eosinophils 0.4 % (0.0-10.0); %Lymphocytes 20.9 % (21.0-51.0); %Monocytes 6.9 % (0.0-10.0); %Neutrophils 71.4 % (42.0-75.0); Hemoglobin 7.8 g/dL (14.0-18.0); Mean Corpuscular HGB CONC 32.6 g/dL (32.0-36.0); Mean Corpuscular Hemoglobin 25.1 pg (27.0-31.0); Mean Corpuscular Volume 77.1 fL (78.0-98.0); Mean Platelet Volume 8.2 fL (7.4-10.4); Platelet Count 341 thou/uL (130-400); RBC Distribution Width 18.7 % (11.5-14.5); White Blood Cell (WBC) Count 12.1 thou/uL (4.8-10.8)
[2021-01-29 11:23] LABS: ALT (SGPT) 10 U/L (8-55); AST (SGOT) 12 U/L (5-34); Albumin 2.6 g/dL (3.4-4.8); Alkaline Phosphatase 63 U/L (40-110); Anion Gap 13 mmol/L (10-20); BUN (Urea Nitrogen) 12 mg/dL (8.4-25.7); Bilirubin, Total 0.5 mg/dL (0.2-1.2); Calc. Creatinine Clearance 0 mL/min (70-130); Calcium 8.2 mg/dL (7.8-10.44); Carbon Dioxide 23 mmol/L (23-31); Chloride 111 mmol/L (98-107); Globulin 2.8 g/dL (2.4-3.5); Glucose 92 mg/dL (83-110); Potassium 3.3 mmol/L (3.5-5.1); Protein, Total 5.4 g/dL (5.8-8.1); Sodium 144 mmol/L (136-145)
[2021-01-29] MEDS ORDERED: Acetaminophen 325 MG TAB PO PRN (12:47)
[2021-01-29] MEDS ORDERED: Ondansetron PF 4 MG/2 ML Vial IVP PRN ×2 (12:47→13:00)
[2021-01-29] MEDS ORDERED: Ondansetron ODT 4 MG TAB SL PRN (13:00)
[2021-01-29] MEDS ORDERED: Acetaminophen 650 MG Suppository PR PRN (13:11)
[2021-01-29] MEDS: Lactated Ringer's 1,000 ML IV SCH ×2 (13:24→20:10)
[2021-01-29] MEDS ORDERED: Dextrose 50% Abboject 50 ML SYRINGE SLOW IVP PRN (13:59)
[2021-01-29] MEDS ORDERED: HumaLOG 300 UNITS/3 ML VIAL SC PRN ×2 (13:59)
[2021-01-29] MEDS ORDERED: Dextrose 5% in Water 1,000 ML IV PRN (13:59)
[2021-01-29] MEDS ORDERED: FLU VACC QS2021-22(65YR UP)/PF 240 MCG/0.7 ML SYRINGE IM ONE (14:15)
[2021-01-29 14:33] VITALS: BMI 32.5
[2021-01-29 17:38] LABS: Hemoglobin 7.4 g/dL (14.0-18.0)
[2021-01-30] MEDS ORDERED: Dextrose 50% Abboject 50 ML SYRINGE SLOW IVP SCH (00:06)
[2021-01-30] MEDS: Lactated Ringer's 1,000 ML IV SCH ×4 (04:45→22:00)
[2021-01-30 05:06] LABS: Hemoglobin 6.9 g/dL (14.0-18.0); Mean Corpuscular HGB CONC 32.7 g/dL (32.0-36.0); Mean Corpuscular Hemoglobin 25.8 pg (27.0-31.0); Mean Corpuscular Volume 78.7 fL (78.0-98.0); Mean Platelet Volume 8.7 fL (7.4-10.4); Platelet Count 267 thou/uL (130-400); RBC Distribution Width 18.6 % (11.5-14.5); Red Blood Cell (RBC) Count 2.67 mill/uL (4.70-6.10); White Blood Cell (WBC) Count 8.1 thou/uL (4.8-10.8)
[2021-01-30 05:31] LABS: Band 1 % (5-11); Lymphocytes 19 % (21-51); MDiff Complete? YES; Monocytes 6 % (0-10); Neutrophil 74 % (42-75); Schistocytes SLIGHT = 2-5 cells (100X) (0-1/hpf)
[2021-01-30] MEDS: Pantoprazole 80 MG in Sodium Chloride 0.9% 100 ML IVPB SCH ×2 (06:41→20:00)
[2021-01-30] MEDS ORDERED: Ketamine 50 MG/ML (10ML VIAL) ONE (10:37)
[2021-01-30] MEDS ORDERED: Ondansetron PF 4 MG/2 ML Vial ONE (10:45)
[2021-01-30] MEDS ORDERED: Succinylcholine 200 MG/10 ml SYRINGE FS ONE (10:45)
[2021-01-30] MEDS ORDERED: Glycopyrrolate 0.2 MG/ML 5 ML SYRINGE ONE (10:45)
[2021-01-30] MEDS: hydrOXYzine 25 MG TAB PO SCH ×3 (13:12→20:52)
[2021-01-30] MEDS: Gabapentin 300 MG CAP PO SCH ×3 (13:12→20:49)
[2021-01-30] MEDS: metFORMIN 500 MG TAB PO SCH ×2 (13:12→15:47)
[2021-01-30 14:40] LABS: Hemoglobin 10.1 g/dL (14.0-18.0)
[2021-01-30 15:01] LABS: ALT (SGPT) 8 U/L (8-55); AST (SGOT) 13 U/L (5-34); Albumin 2.8 g/dL (3.4-4.8); Alkaline Phosphatase 61 U/L (40-110); Anion Gap 12 mmol/L (10-20); BUN (Urea Nitrogen) 18 mg/dL (8.4-25.7); Bilirubin, Total 0.8 mg/dL (0.2-1.2); Calc. Creatinine Clearance 89 mL/min (70-130); Calcium 8.3 mg/dL (7.8-10.44); Carbon Dioxide 25 mmol/L (23-31); Chloride 112 mmol/L (98-107); Globulin 2.9 g/dL (2.4-3.5); Glucose 116 mg/dL (83-110); Potassium 3.4 mmol/L (3.5-5.1); Protein, Total 5.7 g/dL (5.8-8.1); Sodium 146 mmol/L (136-145)
[2021-01-30] MEDS: Cholecalciferol 1,000 UNITS (25 MCG) TAB PO SCH (15:30)
[2021-01-30] MEDS: Cyanocobalamin (Vitamin B-12) 1,000 MCG TAB PO SCH (15:30)
[2021-01-30] MEDS: Lisinopril 5 MG TAB PO SCH (15:30)
[2021-01-30] MEDS: Ferrous Sulfate 325 MG TAB PO SCH (15:30)
[2021-01-30] MEDS: Atorvastatin Calcium 20 MG TAB PO SCH (20:49)
[2021-01-30] MEDS: Tamsulosin HCl 0.4 MG CAP PO SCH (20:52)
[2021-01-30 21:44] LABS: Hemoglobin 9.4 g/dL (14.0-18.0)
[2021-01-31 05:46] LABS: Hemoglobin 8.6 g/dL (14.0-18.0); Mean Corpuscular HGB CONC 32.5 g/dL (32.0-36.0); Mean Corpuscular Hemoglobin 26.8 pg (27.0-31.0); Mean Corpuscular Volume 82.3 fL (78.0-98.0); Mean Platelet Volume 8.4 fL (7.4-10.4); Platelet Count 260 thou/uL (130-400); RBC Distribution Width 18.3 % (11.5-14.5); Red Blood Cell (RBC) Count 3.19 mill/uL (4.70-6.10); White Blood Cell (WBC) Count 7.2 thou/uL (4.8-10.8)
[2021-01-31] MEDS: Pantoprazole 80 MG in Sodium Chloride 0.9% 100 ML IVPB SCH ×2 (05:54→20:36)
[2021-01-31] MEDS: Lactated Ringer's 1,000 ML IV SCH ×2 (05:56→17:03)
[2021-01-31 06:28] LABS: #Basophils 0.1 thou/uL (0.0-0.2); #Eosinphils 0.2 thou/uL (0.0-0.7); #Lymphocytes 1.6 thou/uL (1.20-3.40); #Monocytes 0.7 thou/uL (0.11-0.59); #Neutrophils 4.6 thou/uL (1.40-6.50); %Eosinophils 2.4 % (0.0-10.0); %Lymphocytes 22.4 % (21.0-51.0); %Monocytes 10.3 % (0.0-10.0); %Neutrophils 63.9 % (42.0-75.0); Anisocytosis MODERATE=16-30 cells (100X) (0-5/hpf); MDiff Complete? YES; Schistocytes SLIGHT = 2-5 cells (100X) (0-1/hpf)
[2021-01-31] MEDS: Cholecalciferol 1,000 UNITS (25 MCG) TAB PO SCH (11:05)
[2021-01-31] MEDS: metFORMIN 500 MG TAB PO SCH ×2 (11:05→17:04)
[2021-01-31] MEDS: Cyanocobalamin (Vitamin B-12) 1,000 MCG TAB PO SCH (11:06)
[2021-01-31] MEDS: Ferrous Sulfate 325 MG TAB PO SCH (11:06)
[2021-01-31] MEDS: Gabapentin 300 MG CAP PO SCH ×3 (11:07→19:58)
[2021-01-31] MEDS: hydrOXYzine 25 MG TAB PO SCH ×3 (11:08→19:58)
[2021-01-31] MEDS: Lisinopril 5 MG TAB PO SCH (11:08)
[2021-01-31] MEDS: Atorvastatin Calcium 20 MG TAB PO SCH (19:58)
[2021-01-31] MEDS: Melatonin 3 MG TAB PO PRN (19:58)
[2021-01-31] MEDS: Tamsulosin HCl 0.4 MG CAP PO SCH (19:58)
[2021-02-01 05:31] LABS: ALT (SGPT) 7 U/L (8-55); AST (SGOT) 13 U/L (5-34); Albumin 2.6 g/dL (3.4-4.8); Alkaline Phosphatase 62 U/L (40-110); Anion Gap 11 mmol/L (10-20); BUN (Urea Nitrogen) 10 mg/dL (8.4-25.7); Bilirubin, Total 0.4 mg/dL (0.2-1.2); Calc. Creatinine Clearance 99 mL/min (70-130); Carbon Dioxide 27 mmol/L (23-31); Chloride 112 mmol/L (98-107); Globulin 2.3 g/dL (2.4-3.5); Glucose 81 mg/dL (83-110); Protein, Total 4.9 g/dL (5.8-8.1); Sodium 147 mmol/L (136-145)
[2021-02-01 05:35] LABS: Hemoglobin 9.4 g/dL (14.0-18.0); Mean Corpuscular HGB CONC 33.9 g/dL (32.0-36.0); Mean Corpuscular Hemoglobin 27.9 pg (27.0-31.0); Mean Corpuscular Volume 82.4 fL (78.0-98.0); Mean Platelet Volume 8.4 fL (7.4-10.4); Platelet Count 250 thou/uL (130-400); RBC Distribution Width 18.5 % (11.5-14.5); Red Blood Cell (RBC) Count 3.35 mill/uL (4.70-6.10); White Blood Cell (WBC) Count 7.3 thou/uL (4.8-10.8)
[2021-02-01] MEDS: Lactated Ringer's 1,000 ML IV SCH ×2 (05:51→18:10)
[2021-02-01 06:25] LABS: #Eosinphils 0.2 thou/uL (0.0-0.7); #Lymphocytes 1.7 thou/uL (1.20-3.40); #Monocytes 0.8 thou/uL (0.11-0.59); #Neutrophils 4.7 thou/uL (1.40-6.50); %Basophils 0.4 % (0.0-1.0); %Eosinophils 2.3 % (0.0-10.0); %Lymphocytes 22.9 % (21.0-51.0); %Monocytes 10.3 % (0.0-10.0); Anisocytosis SLIGHT = 6-15 cells (100X) (0-5/hpf); MDiff Complete? YES; Schistocytes SLIGHT = 2-5 cells (100X) (0-1/hpf)
[2021-02-01] MEDS ORDERED: Potassium Chloride 20 MEQ TAB PO SCH ×2 (08:00→14:28)
[2021-02-01] MEDS: Cyanocobalamin (Vitamin B-12) 1,000 MCG TAB PO SCH (08:19)
[2021-02-01] MEDS: Gabapentin 300 MG CAP PO SCH ×3 (08:19→19:55)
[2021-02-01] MEDS: Ferrous Sulfate 325 MG TAB PO SCH (08:20)
[2021-02-01] MEDS: hydrOXYzine 25 MG TAB PO SCH ×3 (08:21→19:52)
[2021-02-01] MEDS: Cholecalciferol 1,000 UNITS (25 MCG) TAB PO SCH (08:21)
[2021-02-01] MEDS: Lisinopril 5 MG TAB PO SCH (08:21)
[2021-02-01] MEDS: metFORMIN 500 MG TAB PO SCH ×2 (08:42→17:13)
[2021-02-01] MEDS: Sucralfate 1 GM/10 ML UDCUP PO SCH ×3 (11:03→23:09)
[2021-02-01 14:11] LABS: Anion Gap 11 mmol/L (10-20); BUN (Urea Nitrogen) 8 mg/dL (8.4-25.7); Calc. Creatinine Clearance 99 mL/min (70-130); Calcium 8.2 mg/dL (7.8-10.44); Carbon Dioxide 27 mmol/L (23-31); Chloride 111 mmol/L (98-107); Glucose 92 mg/dL (83-110); Potassium 3.3 mmol/L (3.5-5.1); Sodium 146 mmol/L (136-145)
[2021-02-01] MEDS: Tamsulosin HCl 0.4 MG CAP PO SCH (19:51)
[2021-02-01] MEDS: Melatonin 3 MG TAB PO PRN (19:51)
[2021-02-01] MEDS: Atorvastatin Calcium 20 MG TAB PO SCH (19:55)
[2021-02-01] MEDS: Pantoprazole 80 MG in Sodium Chloride 0.9% 100 ML IVPB SCH (23:10)
[2021-02-02] MEDS: Sucralfate 1 GM/10 ML UDCUP PO SCH ×3 (05:28→17:34)
[2021-02-02 06:37] LABS: #Basophils 0.1 thou/uL (0.0-0.2); #Eosinphils 0.2 thou/uL (0.0-0.7); #Lymphocytes 1.7 thou/uL (1.20-3.40); #Monocytes 0.7 thou/uL (0.11-0.59); %Basophils 1.3 % (0.0-1.0); %Eosinophils 2.6 % (0.0-10.0); %Lymphocytes 21.9 % (21.0-51.0); %Monocytes 9.4 % (0.0-10.0); %Neutrophils 64.7 % (42.0-75.0); Hemoglobin 9.2 g/dL (14.0-18.0); Mean Corpuscular HGB CONC 32.3 g/dL (32.0-36.0); Mean Corpuscular Hemoglobin 27.5 pg (27.0-31.0); Mean Corpuscular Volume 85.2 fL (78.0-98.0); Mean Platelet Volume 10.2 fL (7.4-10.4); Platelet Count 175 thou/uL (130-400); RBC Distribution Width 19.5 % (11.5-14.5); Red Blood Cell (RBC) Count 3.34 mill/uL (4.70-6.10); White Blood Cell (WBC) Count 7.7 thou/uL (4.8-10.8)
[2021-02-02 06:45] LABS: ALT (SGPT) 7 U/L (8-55); AST (SGOT) 13 U/L (5-34); Albumin 2.4 g/dL (3.4-4.8); Alkaline Phosphatase 62 U/L (40-110); Anion Gap 10 mmol/L (10-20); BUN (Urea Nitrogen) 6 mg/dL (8.4-25.7); Bilirubin, Total 0.5 mg/dL (0.2-1.2); Calc. Creatinine Clearance 98 mL/min (70-130); Calcium 7.9 mg/dL (7.8-10.44); Carbon Dioxide 26 mmol/L (23-31); Chloride 112 mmol/L (98-107); Globulin 2.5 g/dL (2.4-3.5); Glucose 128 mg/dL (83-110); Potassium 3.4 mmol/L (3.5-5.1); Protein, Total 4.9 g/dL (5.8-8.1); Sodium 145 mmol/L (136-145)
[2021-02-02] MEDS ORDERED: Potassium Chloride 20 MEQ TAB PO SCH (08:00)
[2021-02-02] MEDS: Lisinopril 5 MG TAB PO SCH (08:37)
[2021-02-02] MEDS: Gabapentin 300 MG CAP PO SCH ×3 (08:37→21:53)
[2021-02-02] MEDS: metFORMIN 500 MG TAB PO SCH ×2 (08:38→16:44)
[2021-02-02] MEDS: Cyanocobalamin (Vitamin B-12) 1,000 MCG TAB PO SCH (08:38)
[2021-02-02] MEDS: Lactated Ringer's 1,000 ML IV SCH ×2 (08:38→21:59)
[2021-02-02] MEDS: hydrOXYzine 25 MG TAB PO SCH (08:38)
[2021-02-02] MEDS: Tamsulosin HCl 0.4 MG CAP PO SCH (21:53)
[2021-02-02] MEDS: Melatonin 3 MG TAB PO PRN (21:53)
[2021-02-02] MEDS: Atorvastatin Calcium 20 MG TAB PO SCH (21:53)
[2021-02-03] MEDS: Pantoprazole 40 MG VIAL IVP SCH ×3 (00:06→21:16)
[2021-02-03] MEDS: Sucralfate 1 GM/10 ML UDCUP PO SCH ×5 (02:06→23:50)
[2021-02-03] MEDS: Cholecalciferol 1,000 UNITS (25 MCG) TAB PO SCH (08:52)
[2021-02-03] MEDS: Gabapentin 300 MG CAP PO SCH ×3 (08:52→20:53)
[2021-02-03] MEDS: metFORMIN 500 MG TAB PO SCH ×2 (08:52→16:01)
[2021-02-03] MEDS: Lisinopril 5 MG TAB PO SCH (08:53)
[2021-02-03] MEDS: Cyanocobalamin (Vitamin B-12) 1,000 MCG TAB PO SCH (08:53)
[2021-02-03 11:42] LABS: SARS-CoV-2 PCR by NAA Not Detected (NotDetected)
[2021-02-03] MEDS: Lactated Ringer's 1,000 ML IV SCH (11:51)
[2021-02-03] MEDS: Tamsulosin HCl 0.4 MG CAP PO SCH (20:53)
[2021-02-03] MEDS: Melatonin 3 MG TAB PO PRN (20:53)
[2021-02-03] MEDS: Atorvastatin Calcium 20 MG TAB PO SCH (20:54)
[2021-02-03] MEDS ORDERED: Lantus 1000 UNITS/10 ML VIAL SC SCH (21:00)
[2021-02-04] MEDS: Lactated Ringer's 1,000 ML IV SCH ×2 (01:49→15:52)
[2021-02-04] MEDS: Sucralfate 1 GM/10 ML UDCUP PO SCH ×3 (07:33→19:18)
[2021-02-04] MEDS: Gabapentin 300 MG CAP PO SCH ×3 (10:28→20:28)
[2021-02-04] MEDS: Cyanocobalamin (Vitamin B-12) 1,000 MCG TAB PO SCH (10:28)
[2021-02-04] MEDS: Cholecalciferol 1,000 UNITS (25 MCG) TAB PO SCH (10:28)
[2021-02-04] MEDS: Lisinopril 5 MG TAB PO SCH (10:28)
[2021-02-04] MEDS: metFORMIN 500 MG TAB PO SCH ×2 (10:28→16:04)
[2021-02-04] MEDS: Polyethylene Glycol 3350 17 GM Packet PO SCH (10:29)
[2021-02-04] MEDS: Pantoprazole 40 MG VIAL IVP SCH ×2 (11:26→20:29)
[2021-02-04 12:05] LABS: Anion Gap 11 mmol/L (10-20); BUN (Urea Nitrogen) Less than 4 mg/dL (8.4-25.7); Calc. Creatinine Clearance 101 mL/min (70-130); Carbon Dioxide 26 mmol/L (23-31); Chloride 112 mmol/L (98-107); Glucose 77 mg/dL (83-110); Sodium 146 mmol/L (136-145)
[2021-02-04] MEDS: Atorvastatin Calcium 20 MG TAB PO SCH (20:28)
[2021-02-04] MEDS: Tamsulosin HCl 0.4 MG CAP PO SCH (20:28)
[2021-02-05] MEDS: Sucralfate 1 GM/10 ML UDCUP PO SCH ×5 (00:13→20:38)
[2021-02-05] MEDS: Lactated Ringer's 1,000 ML IV SCH (05:22)
[2021-02-05] MEDS ORDERED: Potassium Chloride 20 MEQ TAB PO SCH (06:30)
[2021-02-05 07:32] LABS: Hemoglobin 9.4 g/dL (14.0-18.0)
[2021-02-05] MEDS: Cyanocobalamin (Vitamin B-12) 1,000 MCG TAB PO SCH (09:02)
[2021-02-05] MEDS: Lisinopril 5 MG TAB PO SCH (09:03)
[2021-02-05] MEDS: Cholecalciferol 1,000 UNITS (25 MCG) TAB PO SCH (09:03)
[2021-02-05] MEDS: Polyethylene Glycol 3350 17 GM Packet PO SCH (09:04)
[2021-02-05] MEDS: Gabapentin 300 MG CAP PO SCH ×3 (09:04→20:39)
[2021-02-05] MEDS: metFORMIN 500 MG TAB PO SCH ×2 (09:04→16:00)
[2021-02-05] MEDS ORDERED: Dextrose 5% in Water 1,000 ML IV SCH (09:30)
[2021-02-05] MEDS: Pantoprazole 40 MG VIAL IVP SCH ×2 (10:11→20:38)
[2021-02-05] MEDS: Tamsulosin HCl 0.4 MG CAP PO SCH (20:39)
[2021-02-05] MEDS: Atorvastatin Calcium 20 MG TAB PO SCH (20:39)
[2021-02-06] MEDS: Sucralfate 1 GM/10 ML UDCUP PO SCH ×3 (05:39→17:15)
[2021-02-06 07:48] LABS: Hemoglobin 9.1 g/dL (14.0-18.0)
[2021-02-06] MEDS: Lisinopril 5 MG TAB PO SCH (08:19)
[2021-02-06] MEDS: Cholecalciferol 1,000 UNITS (25 MCG) TAB PO SCH (08:19)
[2021-02-06] MEDS: metFORMIN 500 MG TAB PO SCH ×2 (08:19→17:15)
[2021-02-06] MEDS: Cyanocobalamin (Vitamin B-12) 1,000 MCG TAB PO SCH (08:19)
[2021-02-06] MEDS: Polyethylene Glycol 3350 17 GM Packet PO SCH (08:19)
[2021-02-06] MEDS: Gabapentin 300 MG CAP PO SCH ×2 (08:19→14:27)
[2021-02-06] MEDS: Pantoprazole 40 MG VIAL IVP SCH (08:22)
[2021-02-06] MEDS ORDERED: Acetaminophen 325 MG TAB PO PRN (14:09)
[2021-02-06 16:36] LABS: Anion Gap 9 mmol/L (10-20); BUN (Urea Nitrogen) 4 mg/dL (8.4-25.7); Calc. Creatinine Clearance 110 mL/min (70-130); Calcium 7.9 mg/dL (7.8-10.44); Carbon Dioxide 26 mmol/L (23-31); Chloride 110 mmol/L (98-107); Glucose 79 mg/dL (83-110); Sodium 142 mmol/L (136-145)
[2021-02-06 16:42] LABS: Potassium 2.9 mmol/L (3.5-5.1)
[2021-02-06] MEDS ORDERED: Potassium Chloride 20 MEQ TAB PO SCH (17:00)
[2021-02-06] MEDS: Lactated Ringer's 1,000 ML IV SCH (17:16)
[2021-02-06 17:38] VITALS: BP 130/78; TEMP 98.5
== END 2021-02-06 18:42 | DRG 378 ==
LOC: ERS 09:54 → 2NO 11:46 → T4-A 02-04 15:21
PROVIDERS: ADMIT Family Medicine; ATTEND Emergency Medicine
PROC: 0W3P8ZZ Control Bleeding in Gastrointestinal Tract, Via Natural or Artificial Opening Endoscopic (ICD-10-PCS; principal; 2021-01-30)
PROC: 30233N1 Transfusion of Nonautologous Red Blood Cells into Peripheral Vein, Percutaneous Approach (ICD-10-PCS; 2021-01-30)
DX: K25.4 Chronic or unspecified gastric ulcer with hemorrhage (principal); E87.0 Hyperosmolality and hypernatremia; D62 Acute posthemorrhagic anemia; Z20.822 Contact with and (suspected) exposure to COVID-19; F03.90 Unspecified dementia, unspecified severity, without behavioral disturbance, psychotic disturbance, mood disturbance, and anxiety; I10 Essential (primary) hypertension; G40.909 Epilepsy, unspecified, not intractable, without status epilepticus; E78.5 Hyperlipidemia, unspecified; E03.9 Hypothyroidism, unspecified; G47.33 Obstructive sleep apnea (adult) (pediatric); Z96.653 Presence of artificial knee joint, bilateral; I35.0 Nonrheumatic aortic (valve) stenosis; R94.31 Abnormal electrocardiogram [ECG] [EKG]; M54.16 Radiculopathy, lumbar region; K44.9 Diaphragmatic hernia without obstruction or gangrene; M19.90 Unspecified osteoarthritis, unspecified site; G47.00 Insomnia, unspecified; N41.9 Inflammatory disease of prostate, unspecified; F31.9 Bipolar disorder, unspecified; I45.10 Unspecified right bundle-branch block; D50.9 Iron deficiency anemia, unspecified; E87.8 Other disorders of electrolyte and fluid balance, not elsewhere classified; N40.0 Benign prostatic hyperplasia without lower urinary tract symptoms; E87.6 Hypokalemia; Z79.84 Long term (current) use of oral hypoglycemic drugs; Z79.899 Other long term (current) drug therapy; Z87.891 Personal history of nicotine dependence
CPT/HCPCS: 36415; 36416; 36430; 70450; 80048; 80053; 85025; 86850; 86900; 86901; 93005; 96365; 96366; 96376; C9113; J2405; J3490; J7070; J7120; P9016; U0003; U0005

== ENCOUNTER 2021-02-24 21:52 | Inpatient (IN) | payer MEDICARE, OTHER ==
[2021-02-24] MEDS ORDERED: cefTRIAXone\\ROCEPHIN 2 GM VIAL ONE (22:32)
[2021-02-24 22:58] LABS: #Basophils 0.1 thou/uL (0.0-0.2); #Lymphocytes 2.2 thou/uL (1.20-3.40); #Monocytes 0.7 thou/uL (0.11-0.59); #Neutrophils 6.8 thou/uL (1.40-6.50); %Basophils 0.6 % (0.0-1.0); %Eosinophils 0.3 % (0.0-10.0); %Lymphocytes 22.8 % (21.0-51.0); %Monocytes 7.1 % (0.0-10.0); %Neutrophils 69.2 % (42.0-75.0); Hemoglobin 11.1 g/dL (14.0-18.0); Mean Corpuscular HGB CONC 33.5 g/dL (32.0-36.0); Mean Corpuscular Volume 80.6 fL (78.0-98.0); Platelet Count 153 thou/uL (130-400); RBC Distribution Width 18.4 % (11.5-14.5); Red Blood Cell (RBC) Count 4.12 mill/uL (4.70-6.10); White Blood Cell (WBC) Count 9.8 thou/uL (4.8-10.8)
[2021-02-24 23:17] LABS: INR-International Normal Ratio 1.1; PTT 30.6 sec (22.9-36.1); Prothrombin Time 13.9 sec (12.0-14.7)
[2021-02-24 23:28] LABS: Bacteria/HPF None Seen HPF (None Seen); Bilirubin Negative (Negative); Blood, Urine 2+ (Negative); Clarity Clear (Clear); Glucose, Urine (Dipstick) Normal (Negative); Ketone, Urine Negative (Negative); Leukocyte 75 Leu/uL (Negative); Nitrite Negative (Negative); Protein, Urine (Dipstick) 20 mg/dL (Neg-Trace); Specific Gravity, Urine 1.017 (1.002-1.036); Squamous Epithelial 0-3 HPF (0-3); Urobilinogen Normal mg/dL (Less than 2)
[2021-02-24 23:34] LABS: ALT (SGPT) 7 U/L (8-55); AST (SGOT) 14 U/L (5-34); Albumin 3.1 g/dL (3.4-4.8); Alkaline Phosphatase 54 U/L (40-110); Anion Gap 16 mmol/L (10-20); BUN (Urea Nitrogen) 53 mg/dL (8.4-25.7); Bilirubin, Total 0.7 mg/dL (0.2-1.2); Calc. Creatinine Clearance 0 mL/min (70-130); Calcium 8.1 mg/dL (7.8-10.44); Carbon Dioxide 31 mmol/L (23-31); Chloride 96 mmol/L (98-107); Glucose 89 mg/dL (83-110); Lipase 28 U/L (8-78); Magnesium Less than 0.6 mg/dL (1.6-2.6); Protein, Total 6.1 g/dL (5.8-8.1); Sodium 141 mmol/L (136-145)
[2021-02-24] MEDS ORDERED: Vancomycin 1 GM/200 ML BAG ONE (23:35)
[2021-02-24 23:43] LABS: CKMB 2.7 ng/mL (0-6.6)
[2021-02-24 23:44] LABS: Potassium 2.3 mmol/L (3.5-5.1)
[2021-02-24] MEDS ORDERED: Midazolam HCl 2 mg/2 ml Vial ONE (23:51)
[2021-02-24] MEDS ORDERED: Norepinephrine 8 MG/0.9% NS 250 ML ONE (23:51)
[2021-02-25] MEDS ORDERED: Ketamine 50 MG/ML (10ML VIAL) ONE (00:03)
[2021-02-25 00:42] LABS: SARS-CoV-2 NAA Rapid Test Not Detected (NotDetected)
[2021-02-25] MEDS ORDERED: Acetaminophen 325 MG/10.15 ML UDCUP PO PRN (01:15)
[2021-02-25] MEDS ORDERED: Electrolyte Replacement Protocol 1 EACH IVPB ONE (01:15)
[2021-02-25] MEDS ORDERED: Ondansetron PF 4 MG/2 ML Vial IVP PRN (01:15)
[2021-02-25] MEDS ORDERED: Norepinephrine 8 MG/0.9% NS 250 ML IVPB PRN (01:15)
[2021-02-25] MEDS ORDERED: Acetaminophen 325 MG Suppository PR PRN (01:15)
[2021-02-25] MEDS ORDERED: Lactated Ringer's 1,000 ML IV SCH (01:45)
[2021-02-25] MEDS ORDERED: Norepinephrine 8 MG in Dextrose 5% in Water 242 ML IVPB PRN (01:45)
[2021-02-25] MEDS ORDERED: Electrolyte Replacement Protocol FS PRN (01:45)
[2021-02-25 01:49] LABS: Lactic Acid 2.4 mmol/L (0.5-2.2)
[2021-02-25] MEDS ORDERED: Magnesium 2 GM/50 ML BAG (IN WATER) ONE (01:54)
[2021-02-25] MEDS ORDERED: Potassium Chloride 40 MEQ in Sodium Chloride 0.9% 250 ML 250 ML IVPB SCH ×2 (02:00→08:00)
[2021-02-25 02:02] LABS: Troponin I 0.107 ng/mL (< 0.028)
[2021-02-25 03:24] VITALS: BMI 28.5
[2021-02-25] MEDS: Dextrose 5%-Lactated Ringers 1,000 ML IV SCH ×2 (03:32→13:14)
[2021-02-25 05:36] LABS: Hemoglobin 9.8 g/dL (14.0-18.0); Hypochromia SLIGHT = 6-15 cells (100X) (0-5/hpf); Lymphocytes 16 % (21-51); MDiff Complete? YES; Mean Corpuscular HGB CONC 32.3 g/dL (32.0-36.0); Mean Corpuscular Hemoglobin 26.3 pg (27.0-31.0); Mean Corpuscular Volume 81.4 fL (78.0-98.0); Mean Platelet Volume 10.9 fL (7.4-10.4); Monocytes 5 % (0-10); Neutrophil 79 % (42-75); Platelet Count 173 thou/uL (130-400); Platelet Morphology Comment Appears Adequate; RBC Distribution Width 18.4 % (11.5-14.5); Red Blood Cell (RBC) Count 3.72 mill/uL (4.70-6.10); Target Cells SLIGHT = 2-5 cells (100X) (0-1/hpf)
[2021-02-25 05:50] LABS: Anion Gap 15 mmol/L (10-20); BUN (Urea Nitrogen) 40 mg/dL (8.4-25.7); Calc. Creatinine Clearance 29 mL/min (70-130); Calcium 7.4 mg/dL (7.8-10.44); Carbon Dioxide 29 mmol/L (23-31); Chloride 101 mmol/L (98-107); Glucose 145 mg/dL (83-110); Sodium 142 mmol/L (136-145)
[2021-02-25 05:58] LABS: Magnesium 0.9 mg/dL (1.6-2.6); Potassium 2.9 mmol/L (3.5-5.1)
[2021-02-25 06:03] LABS: Lactic Acid 1.6 mmol/L (0.5-2.2)
[2021-02-25] MEDS ORDERED: Potassium Chloride 40 MEQ/100 ML PREMIX BAG IVPB SCH (06:15)
[2021-02-25] MEDS ORDERED: Magnesium 2 GM/50 ML 2 GM in Premix Bag 1 BAG IVPB SCH ×3 (06:15→23:15)
[2021-02-25] MEDS: Pantoprazole 40 MG VIAL IVP SCH (08:26)
[2021-02-25] MEDS ORDERED: Lactated Ringer's 500 ML IV SCH (08:30)
[2021-02-25 09:08] LABS: Troponin I 0.094 ng/mL (< 0.028)
[2021-02-25] MEDS ORDERED: Ciprofloxacin 500 MG TAB PO SCH (10:15)
[2021-02-25] MEDS ORDERED: Dextrose 5% in Water 1,000 ML IV PRN (12:09)
[2021-02-25] MEDS ORDERED: Dextrose 50% Abboject 50 ML SYRINGE SLOW IVP PRN (12:09)
[2021-02-25] MEDS ORDERED: HumaLOG 300 UNITS/3 ML VIAL SC PRN ×2 (12:09)
[2021-02-25 14:26] LABS: Magnesium 1.8 mg/dL (1.6-2.6)
[2021-02-25 14:37] LABS: Potassium 2.8 mmol/L (3.5-5.1)
[2021-02-25] MEDS: Potassium Chloride 40 MEQ in Sodium Chloride 0.9% 250 ML 250 ML IVPB SCH ×2 (16:50→20:57)
[2021-02-25] MEDS ORDERED: Vancomycin 1 GM in Premix Bag 1 BAG IVPB SCH (21:00)
[2021-02-25] MEDS ORDERED: cefTRIAXone\\ROCEPHIN 2 GM in Sodium Chloride 0.9% 100 ML IVPB SCH (23:00)
[2021-02-26 00:49] LABS: Vancomycin, Random 6.5 ug/mL (See Comment)
[2021-02-26] MEDS ORDERED: Vancomycin 1 GM in Premix Bag 1 BAG IVPB SCH ×2 (01:00→04:00)
[2021-02-26] MEDS: Dextrose 5%-Lactated Ringers 1,000 ML IV SCH ×2 (03:50→14:09)
[2021-02-26 04:27] LABS: #Eosinphils 0.1 thou/uL (0.0-0.7); #Lymphocytes 2.3 thou/uL (1.20-3.40); #Monocytes 0.9 thou/uL (0.11-0.59); #Neutrophils 8.7 thou/uL (1.40-6.50); %Basophils 0.1 % (0.0-1.0); %Eosinophils 0.9 % (0.0-10.0); %Lymphocytes 18.9 % (21.0-51.0); %Monocytes 7.5 % (0.0-10.0); %Neutrophils 72.5 % (42.0-75.0); Hemoglobin 9.6 g/dL (14.0-18.0); Mean Corpuscular HGB CONC 32.1 g/dL (32.0-36.0); Mean Corpuscular Hemoglobin 25.8 pg (27.0-31.0); Mean Corpuscular Volume 80.3 fL (78.0-98.0); Mean Platelet Volume 6.6 fL (7.4-10.4); Platelet Count 165 thou/uL (130-400); Red Blood Cell (RBC) Count 3.73 mill/uL (4.70-6.10)
[2021-02-26 06:32] LABS: Anion Gap 13 mmol/L (10-20); BUN (Urea Nitrogen) 31 mg/dL (8.4-25.7); Calc. Creatinine Clearance 38 mL/min (70-130); Calcium 7.7 mg/dL (7.8-10.44); Carbon Dioxide 29 mmol/L (23-31); Chloride 105 mmol/L (98-107); Glucose 145 mg/dL (83-110); Magnesium 1.8 mg/dL (1.6-2.6); Potassium 3.2 mmol/L (3.5-5.1); Sodium 144 mmol/L (136-145)
[2021-02-26] MEDS: Potassium Chloride 20 MEQ in Premix Bag 1 BAG IVPB SCH ×2 (07:53→09:11)
[2021-02-26] MEDS ORDERED: Magnesium 2 GM/50 ML 2 GM in Premix Bag 1 BAG IVPB SCH (08:00)
[2021-02-26] MEDS: Pantoprazole 40 MG VIAL IVP SCH (09:11)
[2021-02-26] MEDS: Midodrine HCl 5 MG TAB PO SCH ×3 (09:11→20:16)
[2021-02-26 14:42] LABS: Potassium 3.4 mmol/L (3.5-5.1)
[2021-02-27 05:21] LABS: Hemoglobin 9.8 g/dL (14.0-18.0); Mean Corpuscular HGB CONC 30.5 g/dL (32.0-36.0); Mean Corpuscular Hemoglobin 25.4 pg (27.0-31.0); Mean Corpuscular Volume 83.1 fL (78.0-98.0); Mean Platelet Volume 13.9 fL (7.4-10.4); Platelet Count 149 thou/uL (130-400); RBC Distribution Width 19.4 % (11.5-14.5); Red Blood Cell (RBC) Count 3.88 mill/uL (4.70-6.10); White Blood Cell (WBC) Count 7.6 thou/uL (4.8-10.8)
[2021-02-27 05:27] LABS: Anion Gap 10 mmol/L (10-20); BUN (Urea Nitrogen) 23 mg/dL (8.4-25.7); Calc. Creatinine Clearance 53 mL/min (70-130); Carbon Dioxide 30 mmol/L (23-31); Chloride 108 mmol/L (98-107); Glucose 96 mg/dL (83-110); Magnesium 1.8 mg/dL (1.6-2.6); Sodium 145 mmol/L (136-145)
[2021-02-27] MEDS ORDERED: Magnesium 2 GM/50 ML 2 GM in Premix Bag 1 BAG IVPB SCH (05:45)
[2021-02-27 06:04] LABS: #Basophils 0.1 thou/uL (0.0-0.2); #Eosinphils 0.2 thou/uL (0.0-0.7); #Lymphocytes 2.2 thou/uL (1.20-3.40); #Monocytes 0.5 thou/uL (0.11-0.59); #Neutrophils 4.7 thou/uL (1.40-6.50); %Basophils 1.1 % (0.0-1.0); %Eosinophils 2.1 % (0.0-10.0); %Lymphocytes 28.5 % (21.0-51.0); %Monocytes 6.8 % (0.0-10.0); %Neutrophils 61.5 % (42.0-75.0); Anisocytosis SLIGHT = 6-15 cells (100X) (0-5/hpf); MDiff Complete? YES; Poikilocytosis MODERATE=16-30 cells (100X) (0-5/hpf); Schistocytes SLIGHT = 2-5 cells (100X) (0-1/hpf); Target Cells SLIGHT = 2-5 cells (100X) (0-1/hpf)
[2021-02-27] MEDS: Potassium Chloride 20 MEQ in Premix Bag 1 BAG IVPB SCH ×2 (06:51→08:40)
[2021-02-27] MEDS ORDERED: Potassium Chloride 20 MEQ TAB PO SCH ×2 (07:30→16:30)
[2021-02-27] MEDS: Midodrine HCl 5 MG TAB PO SCH ×3 (08:39→20:57)
[2021-02-27] MEDS: Pantoprazole 40 MG VIAL IVP SCH (08:39)
[2021-02-27] MEDS ORDERED: Magnesium Sulfate 2 GM in Sodium Chloride 0.9% 100 ML IVPB SCH (09:30)
[2021-02-27 14:36] LABS: Anion Gap 10 mmol/L (10-20); BUN (Urea Nitrogen) 20 mg/dL (8.4-25.7); Calc. Creatinine Clearance 60 mL/min (70-130); Carbon Dioxide 29 mmol/L (23-31); Chloride 108 mmol/L (98-107); Glucose 103 mg/dL (83-110); Potassium 3.4 mmol/L (3.5-5.1); Sodium 144 mmol/L (136-145)
[2021-02-27 21:27] LABS: Potassium 3.7 mmol/L (3.5-5.1)
[2021-02-28 06:08] LABS: #Eosinphils 0.2 thou/uL (0.0-0.7); #Monocytes 0.5 thou/uL (0.11-0.59); #Neutrophils 4.1 thou/uL (1.40-6.50); %Basophils 0.2 % (0.0-1.0); %Eosinophils 2.8 % (0.0-10.0); %Monocytes 6.7 % (0.0-10.0); %Neutrophils 61.2 % (42.0-75.0); Hemoglobin 9.6 g/dL (14.0-18.0); Mean Corpuscular HGB CONC 32.4 g/dL (32.0-36.0); Mean Corpuscular Hemoglobin 25.5 pg (27.0-31.0); Mean Corpuscular Volume 78.8 fL (78.0-98.0); Mean Platelet Volume 13.4 fL (7.4-10.4); Platelet Count 142 thou/uL (130-400); RBC Distribution Width 20.5 % (11.5-14.5); Red Blood Cell (RBC) Count 3.76 mill/uL (4.70-6.10); White Blood Cell (WBC) Count 6.8 thou/uL (4.8-10.8)
[2021-02-28 06:24] LABS: Anion Gap 13 mmol/L (10-20); BUN (Urea Nitrogen) 18 mg/dL (8.4-25.7); Calc. Creatinine Clearance 76 mL/min (70-130); Calcium 8.2 mg/dL (7.8-10.44); Carbon Dioxide 27 mmol/L (23-31); Chloride 110 mmol/L (98-107); Glucose 88 mg/dL (83-110); Potassium 3.5 mmol/L (3.5-5.1); Sodium 146 mmol/L (136-145)
[2021-02-28] MEDS ORDERED: Potassium Chloride 40 MEQ in Sodium Chloride 0.9% 250 ML 250 ML IVPB SCH (07:45)
[2021-02-28] MEDS ORDERED: Potassium Chloride 20 MEQ TAB PO SCH (07:45)
[2021-02-28] MEDS ORDERED: FLU VACC QS2021-22(65YR UP)/PF 240 MCG/0.7 ML SYRINGE IM ONE (09:00)
[2021-02-28] MEDS: Midodrine HCl 5 MG TAB PO SCH ×5 (09:27→21:04)
[2021-02-28] MEDS: Pantoprazole 40 MG VIAL IVP SCH (09:32)
[2021-02-28 12:59] LABS: Potassium 3.9 mmol/L (3.5-5.1)
[2021-03-01 05:16] LABS: #Eosinphils 0.1 thou/uL (0.0-0.7); #Lymphocytes 1.7 thou/uL (1.20-3.40); #Monocytes 0.6 thou/uL (0.11-0.59); #Neutrophils 3.6 thou/uL (1.40-6.50); %Basophils 0.7 % (0.0-1.0); %Eosinophils 2.2 % (0.0-10.0); %Lymphocytes 28.4 % (21.0-51.0); %Monocytes 9.5 % (0.0-10.0); %Neutrophils 59.3 % (42.0-75.0); Hemoglobin 9.4 g/dL (14.0-18.0); Mean Corpuscular HGB CONC 31.9 g/dL (32.0-36.0); Mean Corpuscular Hemoglobin 25.5 pg (27.0-31.0); Mean Corpuscular Volume 79.9 fL (78.0-98.0); Mean Platelet Volume 8.5 fL (7.4-10.4); Platelet Count 139 thou/uL (130-400); RBC Distribution Width 20.7 % (11.5-14.5); Red Blood Cell (RBC) Count 3.68 mill/uL (4.70-6.10)
[2021-03-01 05:31] LABS: Anion Gap 9 mmol/L (10-20); BUN (Urea Nitrogen) 14 mg/dL (8.4-25.7); Calc. Creatinine Clearance 87 mL/min (70-130); Calcium 8.1 mg/dL (7.8-10.44); Carbon Dioxide 29 mmol/L (23-31); Chloride 113 mmol/L (98-107); Glucose 76 mg/dL (83-110); Potassium 3.1 mmol/L (3.5-5.1); Sodium 148 mmol/L (136-145)
[2021-03-01] MEDS: Potassium Chloride 20 MEQ in Premix Bag 1 BAG IVPB SCH ×2 (06:05→11:50)
[2021-03-01] MEDS: Pantoprazole 40 MG VIAL IVP SCH (09:04)
[2021-03-01] MEDS ORDERED: Potassium Chloride 20 MEQ in Premix Bag 1 BAG IVPB SCH (10:00)
[2021-03-01 11:36] LABS: CKMB 2.4 ng/mL (0-6.6)
[2021-03-01] MEDS ORDERED: Nitroglycerin 2% Ointment 1 INCH/1 GM Packet TOP SCH (11:45)
[2021-03-01] MEDS ORDERED: Ciprofloxacin 500 MG TAB PO SCH ×2 (14:00→21:00)
[2021-03-01] MEDS ORDERED: Lorazepam 2 MG/ML VIAL SLOW IVP SCH (14:15)
[2021-03-01 14:21] LABS: Troponin I 0.036 ng/mL (< 0.028)
[2021-03-01] MEDS ORDERED: Ondansetron ODT 4 MG TAB SL PRN (14:53)
[2021-03-01] MEDS: Nitroglycerin 2% Ointment 1 INCH/1 GM Packet TOP SCH (20:22)
[2021-03-02] MEDS: Nitroglycerin 2% Ointment 1 INCH/1 GM Packet TOP SCH (08:46)
[2021-03-02 15:21] VITALS: BP 122/77; TEMP 97.9
== END 2021-03-02 15:58 | disposition hospice, inpatient (51) | DRG 682 ==
LOC: ERS 21:52 → CCU 02-25 01:12 → SURG A 02-26 23:05
PROVIDERS: ADMIT Student in an Organized Health Care Education/Training Program; ATTEND Student in an Organized Health Care Education/Training Program
PROC: 02HV33Z Insertion of Infusion Device into Superior Vena Cava, Percutaneous Approach (ICD-10-PCS; principal; 2021-02-25)
PROC: 3E043XZ Introduction of Vasopressor into Central Vein, Percutaneous Approach (ICD-10-PCS; 2021-02-25)
DX: N17.9 Acute kidney failure, unspecified (principal); G93.41 Metabolic encephalopathy; R57.8 Other shock; E43 Unspecified severe protein-calorie malnutrition; I50.32 Chronic diastolic (congestive) heart failure; E87.2 Acidosis; Z66 Do not resuscitate; Z20.822 Contact with and (suspected) exposure to COVID-19; F03.90 Unspecified dementia, unspecified severity, without behavioral disturbance, psychotic disturbance, mood disturbance, and anxiety; E78.5 Hyperlipidemia, unspecified; D64.9 Anemia, unspecified; F31.9 Bipolar disorder, unspecified; K25.9 Gastric ulcer, unspecified as acute or chronic, without hemorrhage or perforation; E86.0 Dehydration; N40.0 Benign prostatic hyperplasia without lower urinary tract symptoms; E11.9 Type 2 diabetes mellitus without complications; Z96.653 Presence of artificial knee joint, bilateral; R94.31 Abnormal electrocardiogram [ECG] [EKG]; E87.6 Hypokalemia; E83.42 Hypomagnesemia; E78.00 Pure hypercholesterolemia, unspecified; I11.0 Hypertensive heart disease with heart failure; R19.7 Diarrhea, unspecified; E86.1 Hypovolemia; Z86.73 Personal history of transient ischemic attack (TIA), and cerebral infarction without residual deficits; Z79.899 Other long term (current) drug therapy; Z79.84 Long term (current) use of oral hypoglycemic drugs; Z87.891 Personal history of nicotine dependence; Z68.30 Body mass index [BMI] 30.0-30.9, adult
CPT/HCPCS: 36415; 36416; 36556; 70450; 71045; 80048; 80053; 80202; 81003; 81015; 82553; 83605; 83690; 83735; 84132; 84134; 84145; 84443; 84484; 85007; 85025; 85027; 85610; 85730; 86850; 86900; 86901; 87040; 87086; 87324; 87449; 93005; 93010; 96365; 96366; 96374; 96375; C9113; J0696; J0744; J2250; J3370; J3475; J3480; J7050; J7070; J7120; U0002